=== PATIENT | female | born 1975 | race Caucasian/White ===

== ENCOUNTER 2020-04-22 07:50 | Outpatient (REF) | payer OTHER, MEDICAID, SELFPAY ==
[2020-04-22 08:58] LABS: Alanine Aminotransferase 10 U/L (0-31); Albumin Level 4.1 g/dL (3.5-5.0); Alkaline Phosphatase 74 U/L (39-117); Anion Gap 10 (12-20); Aspartate Amino Transferase 13 U/L (5-31); Bilirubin Direct 0.3 mg/dL (0.0-0.5); Bilirubin Total 0.6 mg/dL (0.0-1.0); Blood Urea Nitrogen 13 mg/dL (9-16); Calcium 8.9 mg/dL (8.4-10.2); Carbon Dioxide 28 mmol/L (22-29); Chloride 104 mmol/L (96-108); Estimated Glomerular Filt Rate > 60; Gamma Glutamyl Transpeptidase 10 U/L (7-33); Glucose Random 87 mg/dL (60-115); Potassium 4.5 mmol/l (3.3-5.1); Sodium 137 mmol/L (135-145)
[2020-04-23 11:20] LABS: Hepatitis A Antibody IgG REACTIVE (Nonreactive); ~Hepatitis A Antibody IgG 8.59 S/CO (0.00-0.99)
== END 2020-04-22 07:51 | disposition home or self-care (01) ==
LOC: HO.LAB 07:50
PROVIDERS: PCP Internal Medicine; Visit Provider Internal Medicine Gastroenterology
DX: B18.1 Chronic viral hepatitis B without delta-agent (principal)
CPT/HCPCS: 36415; 80053; 80076; 82977; 86708

== ENCOUNTER 2020-05-07 09:23 | Outpatient (REF) | payer OTHER, MEDICAID, SELFPAY ==
[2020-05-07 11:19] LABS: MANUAL DIFF FLAG NO
[2020-05-07 11:32] LABS: Basophils Percent Auto 0.6 % (0-2); Eosinophils Absolute Auto 0.1 X10*3/uL (0.0-0.4); Hematocrit 40.2 % (37-47); Hemoglobin 12.6 g/dl (12.0-16.0); Imm Gran Abs Auto 0.02 X10*3/uL (0.00-0.03); Imm Gran Pct Auto 0.3 % (0.0-0.4); Lymphocytes Absolute Auto 2.2 X10*3/uL (1.2-4.9); Lymphocytes Percent Auto 33.5 % (20-40); Mean Corpuscular HGB Conc 31.3 g/dl (31.0-35.0); Mean Corpuscular Hemoglobin 28.8 pg (27.0-33.0); Mean Platelet Volume 11.6 fL (9.4-12.3); Monocytes Absolute Auto 0.5 X10*3/uL (0.1-1.2); Monocytes Percent Auto 7.8 % (2-11); Neutrophils Absolute Auto 3.8 X10*3/uL (2.0-8.3); Neutrophils Percent Auto 56.8 % (45-73); Platelet Count 168 X10*3/uL (160-400); Red Blood Count 4.37 X10*6/uL (4.20-5.50); Red Cell Distribution Width 11.6 % (11.0-16.0); White Blood Count 6.7 X10*3/uL (4.8-10.8)
[2020-05-07 11:33] LABS: Glucose Urine UA NEG (NEG); Leukocyte Esterase Urine NEG (NEG); Nitrite Urine NEG (NEG); PH 7.5 (5.0-8.0); Urine Blood NEG (NEG); Urine Ketones NEG (NEG); Urine Protein NEG (NEG-TRACE)
[2020-05-07 11:34] LABS: Appearance Urine CLEAR; Color Urine YELLOW
[2020-05-07 12:18] LABS: TSH reflex Free T4 1.61 mIU/mL (0.32-4.0); Vitamin D 25-OH Total 23.2 ng/mL (>30)
== END 2020-05-07 09:24 | disposition home or self-care (01) ==
LOC: HO.HMGCLDS 09:23
PROVIDERS: PCP Internal Medicine; Visit Provider Internal Medicine
DX: Z00.01 Encounter for general adult medical examination with abnormal findings (principal); Z90.5 Acquired absence of kidney; D69.6 Thrombocytopenia, unspecified; R53.83 Other fatigue
CPT/HCPCS: 36415; 81003; 82306; 84443; 85025

== ENCOUNTER → 2020-09-01 08:28 | Outpatient (BNVA) | payer OTHER, MEDICAID, SELFPAY | PROVIDERS: PCP Internal Medicine; Visit Provider Internal Medicine Gastroenterology ==

== ENCOUNTER 2021-09-05 08:52 | Outpatient (REF) | payer OTHER, SELFPAY ==
[2021-09-05 11:45] LABS: Appearance Urine CLEAR; Color Urine YELLOW; Glucose Urine UA NEG (NEG); Leukocyte Esterase Urine NEG (NEG); MANUAL DIFF FLAG NO; Nitrite Urine NEG (NEG); Specific Gravity - Urine >= 1.030 (1.005-1.025); UACC Culture Trigger NO; Urine Blood TRACE (NEG); Urine Ketones NEG (NEG); Urine Protein NEG (NEG-TRACE)
[2021-09-05 11:52] LABS: Basophils Percent Auto 0.7 % (0-2); Eosinophils Absolute Auto 0.1 X10*3/uL (0.0-0.4); Eosinophils Percent Auto 1.8 % (0-4); Hematocrit 39.2 % (37.0-47.0); Hemoglobin 12.7 g/dl (12.0-16.0); Imm Gran Abs Auto 0.02 X10*3/uL (0.00-0.03); Imm Gran Pct Auto 0.3 % (0.0-0.4); Lymphocytes Absolute Auto 2.2 X10*3/uL (1.2-4.9); Lymphocytes Percent Auto 36.2 % (20-40); Mean Corpuscular HGB Conc 32.4 g/dl (31.0-35.0); Mean Corpuscular Hemoglobin 29.5 pg (27.0-33.0); Mean Platelet Volume 12.1 fL (9.4-12.3); Monocytes Absolute Auto 0.5 X10*3/uL (0.1-1.2); Monocytes Percent Auto 8.3 % (2-11); Neutrophils Absolute Auto 3.2 x10*3/uL (2.0-8.3); Neutrophils Percent Auto 52.7 % (45-73); Platelet Count 149 X10*3/uL (160-400); Red Blood Count 4.31 X10*6/uL (4.20-5.50); Red Cell Distribution Width 11.7 % (11.0-16.0)
[2021-09-05 11:58] LABS: Bacteria Urine TRACE /LPF; Squamous Epithelial Cell Urine 1+ /LPF; WBC Urine 0-2 /HPF (0-4)
[2021-09-05 12:01] LABS: Alanine Aminotransferase 14 U/L (0-31); Anion Gap 11 (12-20); Aspartate Amino Transferase 18 U/L (5-31); Blood Urea Nitrogen 9 mg/dL (9-16); Calcium 9.4 mg/dL (8.4-10.2); Carbon Dioxide 25 mmol/L (22-29); Chloride 105 mmol/L (96-108); Cholesterol 145 mg/dL; Estimated Glomerular Filt Rate > 60; Glucose Fasting 76 mg/dL (60-99); HDL Cholesterol 50 mg/dL; LDL Cholesterol Calculated 81 mg/dl; Potassium 3.6 mmol/L (3.3-5.1); Sodium 137 mmol/L (135-145); Triglycerides 71 mg/dL
[2021-09-05 12:23] LABS: Vitamin D 25-OH Total 25.3 ng/mL (>30)
== END 2021-09-05 08:53 | disposition home or self-care (01) ==
LOC: HO.HMGCLDS 08:52
PROVIDERS: Visit Provider Internal Medicine
DX: Z00.01 Encounter for general adult medical examination with abnormal findings (principal); Z90.5 Acquired absence of kidney
CPT/HCPCS: 36415; 80048; 80061; 81001; 82306; 84450; 84460; 85025

== ENCOUNTER 2022-08-24 14:44 | Outpatient (AMB) | payer OTHER, MEDICAID, SELFPAY ==
--- NOTE | 2022-08-24 15:40 | MHC.PC.OV ---
Vital Signs 08/24/22 15:41 Height 5 ft Weight 139 lb BMI 27.1 BP 112/76 Blood Pressure Location Lt brachial Position Sitting Pulse 88 Pulse Source Pulse Oximeter Pulse Oximetry (%) 99 Oxygen Delivery Method Room Air Intake Visit Reasons: Requesting xray of heart Intake Note: Pt is here today for a sick visit. Pt had chest discomfort that started in July and it comes and goes. Pt states that she had Covid in June.Pt also c/o lower back pain and she wants to have her urine checked as she only has one kidney. Allergies No Known Drug Allergies Allergy (Verified 03/12/25 11:22) Unknown Medication List - Last Reconciled 08/24/22 by Tessie Cerrato MD cholecalciferol (vitamin D3) 25 mcg PO DAILY cyanocobalamin (vitamin B-12) 1,000 mcg PO DAILY Tobacco use date assessed: 08/24/22 [facility] Medical History (Updated 07/17/25 @ 08:31 by Olivia Lweis CNP) Constipation Hiatal hernia Acid reflux Colon cancer screening Generalized anxiety disorder Sliding hiatal hernia Lumbago History of COVID-19 Hx of unilateral nephrectomy Hepatitis A Juvenile seizure disorder Surgical History History of nephrectomy, left Family History Father No problems noted. 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 Eber Werner, Dee Jaimes, Elder Payne and colleagues, with an educational emily from [employer]. Physical exam (Primary Care) Vital Signs: Last Vital Signs Pulse 88 08/24/22 15:41 BP 112/76 08/24/22 15:41 Pulse Ox 99 08/24/22 15:41 Oxygen Delivery Method Room Air 08/24/22 15:41 BMI result Body Mass Index 27.1 Tobacco/Smoking Status: Tobacco use Status Tobacco use date assessed 08/24/22 08/24/22 15:45 Patient Tobacco Use Status Never used Tobacco 08/24/22 15:45 e-Cigarette/Vaping Use Never Used 08/24/22 15:45 Thrive Assessment: Date of Thrive Assessment Date Thrive assessed 09/05/21 08/24/22 15:45 Results AMB Urinalysis, Automated UA Leukoctes 0 Vladimir/uL Last Edit by Sinai Torrez CMA on 08/24/22 15:58 UA Nitrite Negative Last Edit by Sinai Torrez CMA on 08/24/22 15:58 UA Urobilinogen 0.2 mg/dL Last Edit by Sinai Torrez CMA on 08/24/22 15:58 UA Protein 0 mg/dL Last Edit by Sinai Torrez CMA on 08/24/22 15:58 UA pH 6.0 Last Edit by Sinai Torrez CMA on 08/24/22 15:58 UA Blood 200 Amrvel/uL Last Edit by Sinai Torrez CMA on 08/24/22 15:58 pt on menses Sinai Torrez 08/24/22 15:58 UA Specific [place] 1.020 Last Edit by Sinai Torrez CMA on 08/24/22 15:58 UA Ketone Negative Last Edit by Sinai Torrez CMA on 08/24/22 15:58 UA Bilirubin 0 mg/dL Last Edit by Sinai Torrez CMA on 08/24/22 15:58 UA Glucose 0 mg/dL Last Edit by Sinai Torrez CMA on 08/24/22 15:58 Results Reviewed Results Reviewed: Laboratory Last Values Urine pH (Auto) 6.0 08/24/22 15:53 Specific [place] (Auto) 1.020 08/24/22 15:53 Urine Protein (Auto) 0 mg/dL 08/24/22 15:53 Glucose (UA)(Auto) 0 mg/dL 08/24/22 15:53 Urine Ketones (Auto) Negative 08/24/22 15:53 Urine Blood (Auto) 200 Marvel/uL 08/24/22 15:53 Urine Nitrite (Auto) Negative 08/24/22 15:53 Urine Bilirubin (Auto) 0 mg/dL 08/24/22 15:53 Urine Urobilinogen (Auto) 0.2 mg/dL 08/24/22 15:53 Leukocyte Esterase (Auto) 0 Vladimir/uL 08/24/22 15:53 Coding Level of Care Code Admin Sign Off/No Billing Diagnoses Hx of unilateral nephrectomy Z90.5 Intermittent palpitations R00.2
[2022-08-24 15:41] VITALS: BP 112/76; PULSE 88; O2SAT 99; BMI 27.1
== END 2022-08-24 16:45 | disposition home or self-care (01) ==
LOC: HO.HMGC 14:44
PROVIDERS: PCP Internal Medicine; Visit Provider Internal Medicine
DX: Z90.5 Acquired absence of kidney (principal); R00.2 Palpitations
CPT/HCPCS: 99499

== ENCOUNTER 2022-08-26 09:40 | Outpatient (REF) | payer OTHER, SELFPAY ==
[2022-08-26 09:50] LABS: MANUAL DIFF FLAG NO
[2022-08-26 10:25] LABS: Basophils Absolute Auto 0.1 X10*3/uL (0.0-0.2); Basophils Percent Auto 0.9 % (0-2); Eosinophils Absolute Auto 0.2 X10*3/uL (0.0-0.4); Eosinophils Percent Auto 2.6 % (0-4); Hematocrit 41.3 % (37.0-47.0); Hemoglobin 13.5 g/dl (12.0-16.0); Imm Gran Abs Auto 0.01 X10*3/uL (0.00-0.03); Imm Gran Pct Auto 0.2 % (0.0-0.4); Lymphocytes Absolute Auto 2.4 X10*3/uL (1.2-4.9); Lymphocytes Percent Auto 37.3 % (20-40); Mean Corpuscular HGB Conc 32.7 g/dl (31.0-35.0); Mean Corpuscular Hemoglobin 29.3 pg (27.0-33.0); Mean Corpuscular Volume 89.6 fL (80.0-98.0); Mean Platelet Volume 10.9 fL (9.4-12.3); Monocytes Absolute Auto 0.5 X10*3/uL (0.1-1.2); Monocytes Percent Auto 7.5 % (2-11); Neutrophils Absolute Auto 3.3 x10*3/uL (2.0-8.3); Neutrophils Percent Auto 51.5 % (45-73); Platelet Count 184 X10*3/uL (160-400); Red Blood Count 4.61 X10*6/uL (4.20-5.50); Red Cell Distribution Width 11.9 % (11.0-16.0); White Blood Count 6.4 X10*3/uL (4.8-10.8)
[2022-08-26 12:42] LABS: Anion Gap 15 (12-20); Blood Urea Nitrogen 17 mg/dL (9-16); Calcium 9.5 mg/dL (8.4-10.2); Carbon Dioxide 21 mmol/L (22-29); Chloride 106 mmol/L (96-108); Cholesterol 175 mg/dL; Estimated Glomerular Filt Rate > 60; Glucose Fasting 79 mg/dL (60-99); HDL Cholesterol 51 mg/dL; LDL Cholesterol Calculated 111 mg/dl; Potassium 4.1 mmol/L (3.3-5.1); Sodium 138 mmol/L (135-145); Triglycerides 67 mg/dL
[2022-08-26 12:47] LABS: TSH reflex Free T4 1.32 uIU/mL (0.32-4.0); Vitamin D 25-OH Total 33.5 ng/mL (>30)
== END 2022-08-26 09:41 | disposition home or self-care (01) ==
LOC: HO.LAB 09:40
PROVIDERS: PCP Internal Medicine; Visit Provider Internal Medicine
DX: E55.9 Vitamin D deficiency, unspecified (principal); R00.2 Palpitations; Z86.16 Personal history of COVID-19; Z90.5 Acquired absence of kidney
CPT/HCPCS: 36415; 80048; 80061; 82306; 84443; 85025

== ENCOUNTER 2023-01-24 09:55 | Outpatient (REF) | payer OTHER, MEDICAID, SELFPAY | END 2023-01-24 09:56 | disposition home or self-care (01) | LOC: HO.HMGCLDS 09:55 | PROVIDERS: PCP Internal Medicine; Visit Provider Internal Medicine | DX: Z00.00 Encounter for general adult medical examination without abnormal findings (principal); Z90.5 Acquired absence of kidney | CPT/HCPCS: 36415; 80048 ==

== ENCOUNTER 2024-01-30 10:28 | Outpatient (AMB) | payer OTHER, MEDICAID, SELFPAY ==
--- NOTE | 2024-01-30 11:12 | A.OFFPC_ITS ---
Vital Signs 01/30/24 11:14 Height 4 ft 11 in Weight 139 lb BMI 28.1 BP 122/80 Blood Pressure Location Lt brachial Position Sitting Pulse 75 Pulse Source Pulse Oximeter Pulse Oximetry (%) 99 Oxygen Delivery Method Room Air Intake Visit Reasons: PE Intake Note: Pt is here today for her PE: mammogram 01/25/24, cologuard 07/05/22 Is last menstrual period known: Yes Last menstrual period: 01/26/24 Allergies No Known Drug Allergies Allergy (Verified 01/30/24 11:47) Unknown Medication List - Last Reconciled 01/30/24 by Tessie Cerrato MD buspirone 5 mg PO TID Tobacco use date assessed: 01/30/24 Dental Screening Dental Screen Date: 01/30/24 Did you have a dental visit in the last 12 months?: Yes Did you have a dental problem in the last 6 months where you did not have access to dental care?: No Was dental information given to patient?: Patient has dentist HPI PE HPI Details 48-year-old lady here today for physical exam. She is up-to-date with her screening mammogram done at [facility] and also sees her OBGYN [facility] for her routine Pap and pelvic exam which is currently up-to-date. She is up-to-date with her colon cancer screening, had a Cologuard test done in 2021 which came back with negative findings, due again in 2024.. Has been having a lot of health problems in the family lately takes care of her who is currently disabled. States that she is feeling overwhelmed at present and has been having frequent anxiety attacks and depressed mood. She has been having difficulty sleeping at times, previously was being seen for therapy , and now has schedule another appointment to be seen [facility] Medical History Anxiety and depression Lumbago History of COVID-19 Hx of unilateral nephrectomy Hepatitis A Juvenile seizure disorder Surgical History History of nephrectomy, left Family History Father No problems noted. 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 Questionnaire PHQ-9 Over the last 2 weeks, how often have you been bothered by any of the following problems? 1. Little interest or pleasure in doing things: several days 2. Feeling down, depressed, or hopeless: several days 3. Trouble falling or staying asleep, or sleeping too much: several days 4. Feeling tired or having little energy: several days 5. Poor appetite or overeating: not at all 6. Feeling bad about yourself - or that you are a failure or have let yourself or your family down: several days 7. Trouble concentrating on things, such as reading the newspaper or watching television: not at all 8. Moving or speaking so slowly that other people could have noticed. Or the opposite - being so fidgety or restless that you have been moving around a lot more than usual: not at all 9. Thoughts that you would be better off or of hurting yourself in some way: not at all Total score: 5 Depression Screening Interpretation: Positive Depression Screening Follow-up: Existing condition, New Medication prescribed, Community Mental Health Worker F/U and Follow-up Visit Requested Depression Screening Done: Yes 42681 - PHQ-9 Billing: Yes Source: Developed by Drs. Eber Werner, Dee Jaimes, Elder Payne and colleagues, with an educational emily from [employer] Thrive Questionnaire Date Thrive assessed: 01/30/24 I am a: Patient What is your living situation today?: I have a steady place to live Within the past 12 months, did the food you bought not last and you didn't have the money to get more?: Never true Within the past 12 months, did you worry whether your food would run out before you got money to buy more?: Never true Do you have trouble paying for medicines?: No Do you have trouble getting transportation to medical appointments?: No Do you have trouble paying your heating and electricity bill?: No Do you have trouble taking care of your child, family member or friend?: No Do you have trouble with day-to-day activities such as bathing, preparing meals, shopping, managing finances, etc.?: No Are you currently unemployed and looking for a job?: No Are you interested in more education?: No Currently or been in a relationship where the following occur: No concerns reported THRIVE Score: 0 AUDIT C Alcohol Use Questionnaire (AUDIT-C) 1. How often do you have a drink containing alcohol?: Never 3. How often do you have six or more drinks on one occasion?: Never Total Score: 0 AFRICA-7 AMB Questionnaire AFRICA-7 Date AFRICA - 7 assessed: 01/30/24 Feeling nervous, anxious, or on edge: 2 = More than half the days Not being able to stop or control worryin = More than half the days Worrying too much about different things: 2 = More than half the days Trouble relaxin = More than half the days Being so restless that it is hard to sit still: 0 = Not at all Becoming easily annoyed or irritable: 1 = Several days Feeling afraid as if something awful might happen: 0 = Not at all Total AFRICA-7 score (0-4 normal; 5-9 mild; 10-14 moderate; 15-21 severe): 9 Source: Developed by Drs. Eber Werner, Dee Jaimes, Elder Payne and colleagues, with an educational emily from [employer] AFRICA-7 Assessment Billing AFRICA-7 Assessment Tool: AFRICA-7 Assessment 08064 Review of Systems Const Denies body aches, Reports difficulty sleeping, Reports fatigue, Denies fever(s), Denies lethargy and Denies malaise Eyes Reports no additional complaints and Reports requires corrective lenses ENT Reports no additional complaints Card Denies chest pain, Denies irregular heart rhythm, Denies leg edema, Denies lightheadedness and Denies dyspnea Resp Denies cough and Denies dyspnea GI Denies abdominal pain, Denies melena, Denies hematochezia, Denies change in bowel habits, Denies heartburn and Denies nausea Denies abnormal menses, Denies hematuria, Denies difficulty voiding, Denies genital pruritis, Denies menorrhagia, Denies nipple discharge, Denies dysmenorrhea, Denies dysuria, Denies urinary incontinence and Denies vaginal discharge Musc Reports as per HPI, Denies arthralgias, Denies joint swelling and Denies muscle weakness Skin/Breast Denies breast skin changes, Denies breast pain, Denies breast mass, Denies nipple discharge and Denies unusual bruising Neuro Reports no additional complaints Psych Reports as per HPI Endo Reports no additional complaints and Reports fatigue Tima/Lymph Reports no additional complaints and Denies easy bleeding Aller/Immun Reports no additional complaints Physical exam (Primary Care) Vital Signs: Last Vital Signs Pulse 75 01/30/24 11:14 BP 122/80 01/30/24 11:14 Pulse Ox 99 01/30/24 11:14 Oxygen Delivery Method Room Air 01/30/24 11:14 BMI result Body Mass Index 28.1 Tobacco/Smoking Status: Tobacco use Status Tobacco use date assessed 01/30/24 01/30/24 11:17 Patient Tobacco Use Status Never used Tobacco 01/30/24 11:12 e-Cigarette/Vaping Use Never Used 01/30/24 11:12 PHQ-9: PHQ-9 Score PHQ-9: Total score 5 01/30/24 12:02 Depression Screening Interpretation: Positive Depression Screening Follow-up: Existing condition, New Medication prescribed, Community Mental Health Worker F/U and Follow-up Visit Requested Thrive Assessment: Date of Thrive Assessment Date Thrive assessed 01/30/24 01/30/24 12:02 Currently or been in a relationship where the following occur: No concerns reported Const General: no acute distress Nutritional Appearance: average body habitus Orientation/consciousness: patient oriented x3 HENMT Head: Yes normocephalic Ears: hearing grossly normal bilaterally, external ears normal, TM's normal bilaterally and EAC's normal General nose exam: Normal external nose present Face and sinus: Yes face symmetric Mouth: Normal oral and palatal mucosa present, tongue normal, oropharynx normal and moist mucous membranes Eyes General: appearance normal, both eyes and all related structures Conjunctivae: conjunctivae normal Pupils: Equal, round and reactive pupils present EOM: EOMs intact bilaterally Neck Neck: Yes full ROM, Yes no lymphadenopathy and Yes supple Chest Breast/axilla palpation: normal palpation of the breasts Resp Effort & Inspection: normal respiratory effort and able to speak in complete sentences Auscultation: clear to auscultation bilaterally Cardio Rate: regular rate Rhythm: regular rhythm Heart sounds: S1 normal heart sound present and S2 normal heart sound present GI Inspection: Yes normal to inspection Palpation (GI): Soft to palpation, nontender, no guarding and no masses Auscultation: normal bowel sounds General: Yes no CVA tenderness and Yes deferred (Mikaela HARRIS has appointment March 2023 per patient) Back/Spine/Pelvis Back: no CVA tenderness Cervical Spine: cervical ROM normal Thoracic/Lumbar Spine: thoraco-lumbar ROM normal, straight leg raise negative bilaterally and lumbar spinal tenderness Skin General skin exam: no rashes or lesions noted Neuro General: patient oriented x3, gait normal, tone normal, moves all extremities, Normal light touch and pain sensation, no focal motor deficits and CN's II-XI intact bilaterally Cranial nerves: Yes Equal, round and reactive pupils present Gait exam (Neuro): Normal gait present Motor exam (neuro): 5/5 motor strength present throughout Extrem General: Yes full ROM, Yes no joint enlargement, Yes no clubbing, cyanosis or edema, Yes no pedal edema, Yes no calf tenderness and Yes normal gait Psych Appearance: grossly normal and well kempt Mental Status: mental status grossly normal Speech and movement: Normal speech and movement present Affect: normal affect Attitude: cooperative Thought process: Normal thought process present Thought content: Normal thought content present Assessment and Plan Assessment & Plan (1) Hx of unilateral nephrectomy: Comment: Donated her left kidney to spouse Code(s): Z90.5 - Acquired absence of kidney Plan: Advised to stay well-hydrated, avoid NSAIDs or and any nephrotoxic agents. Pain good control blood pressure and glucose levels. (2) Annual visit for general adult medical examination with abnormal findings: Code(s): Z00.01 - Encounter for general adult medical examination with abnormal findings Plan: Will check appropriate labs. Continue ready dental visit every 6 months and regular eye exams, at least every 2 years. Take adequate calcium in diet and vitamin-D 3 at 2000 IU per cap once a day, in addition to weight-bearing exercises to help maintain good muscle tone and weight control. Instructed to do self-breast exam, and continue to get yearly mammogram. Gets it done at [facility], sees her OBGYN at [facility] for her routine Pap and pelvic exam,. She is up-to-date with all her vaccinations, and colon cancer screening, had her Cologuard test done in 2021, due for recheck in 2024. (3) Anxiety and depression: Code(s): F41.9 - Anxiety disorder, unspecified; F32.A - Depression, unspecified Plan: Will start on buspirone 5 mg per tablet to take 1 tablet twice a day and take an extra dose as needed for acute anxiety attacks. Patient to start seeing her therapist again. See her back for follow-up in 3 weeks Orders: Orders Complete Blood Count Auto Diff Today R53.83 - Other fatigue, Z00.01 - Encounter for general adult medical examination with abnormal findings, Z13.1 - Encounter for screening for diabetes mellitus, Z13.220 - Encounter for screening for lipoid disorders, Z86.39 - Personal history of other endocrine, nutritional and metabolic disease, Z90.5 - Acquired absence of kidney Aspartate Amino Transferase Today R53.83 - Other fatigue, Z00.01 - Encounter for general adult medical examination with abnormal findings, Z13.1 - Encounter for screening for diabetes mellitus, Z13.220 - Encounter for screening for lipoid disorders, Z86.39 - Personal history of other endocrine, nutritional and metabolic disease, Z90.5 - Acquired absence of kidney Alanine Aminotransferase Today R53.83 - Other fatigue, Z00.01 - Encounter for general adult medical examination with abnormal findings, Z13.1 - Encounter for screening for diabetes mellitus, Z13.220 - Encounter for screening for lipoid disorders, Z86.39 - Personal history of other endocrine, nutritional and metabolic disease, Z90.5 - Acquired absence of kidney Lipid Panel Today R53.83 - Other fatigue, Z00.01 - Encounter for general adult medical examination with abnormal findings, Z13.1 - Encounter for screening for diabetes mellitus, Z13.220 - Encounter for screening for lipoid disorders, Z86.39 - Personal history of other endocrine, nutritional and metabolic disease, Z90.5 - Acquired absence of kidney Vitamin D 25-OH Total Today R53.83 - Other fatigue, Z00.01 - Encounter for general adult medical examination with abnormal findings, Z13.1 - Encounter for screening for diabetes mellitus, Z13.220 - Encounter for screening for lipoid disorders, Z86.39 - Personal history of other endocrine, nutritional and metabolic disease, Z90.5 - Acquired absence of kidney Vitamin B12 and Folate Today R53.83 - Other fatigue, Z00.01 - Encounter for general adult medical examination with abnormal findings, Z13.1 - Encounter for screening for diabetes mellitus, Z13.220 - Encounter for screening for lipoid disorders, Z86.39 - Personal history of other endocrine, nutritional and metabolic disease, Z90.5 - Acquired absence of kidney Basic Metabolic Panel Fasting Today R53.83 - Other fatigue, Z00.01 - Encounter for general adult medical examination with abnormal findings, Z13.1 - Encounter for screening for diabetes mellitus, Z13.220 - Encounter for screening for lipoid disorders, Z86.39 - Personal history of other endocrine, nutritional and metabolic disease, Z90.5 - Acquired absence of kidney Medications: New buspirone 5 mg PO TID 90 tabs 0RF F32.A - Depression, unspecified, F41.9 - Anxiety disorder, unspecified Coding Level of Care Code Est Pt Prev Care 40-64y(55425) Diagnoses Hx of unilateral nephrectomy Z90.5 Annual visit for general adult medical examination with abnormal findings Z00.01 Anxiety and depression F41.9; F32.A Additional Codes AFRICA-7 Assessment Billing - AFRICA-7 Assessment Tool: AFRICA-7 Assessment 87490 ([id number])
[2024-01-30 11:14] VITALS: BP 122/80; PULSE 75; O2SAT 99; BMI 28.1
== END 2024-01-30 11:53 | disposition home or self-care (01) ==
PROVIDERS: PCP Internal Medicine; Visit Provider Internal Medicine
DX: Z00.00 Encounter for general adult medical examination without abnormal findings (principal); Z90.5 Acquired absence of kidney; F41.9 Anxiety disorder, unspecified; F32.A Depression, unspecified
CPT/HCPCS: 96127; 99396

== ENCOUNTER 2024-01-30 11:52 | Outpatient (REF) | payer OTHER, SELFPAY ==
[2024-01-30 13:06] LABS: MANUAL DIFF FLAG NO
[2024-01-30 13:28] LABS: Basophils Percent Auto 0.5 % (0-2); Eosinophils Percent Auto 0.4 % (0-4); Hematocrit 42.7 % (37.0-47.0); Hemoglobin 13.8 g/dl (12.0-16.0); Imm Gran Abs Auto 0.02 X10*3/uL (0.00-0.03); Imm Gran Pct Auto 0.2 % (0.0-0.4); Lymphocytes Percent Auto 24.8 % (20-40); Mean Corpuscular HGB Conc 32.3 g/dl (31.0-35.0); Mean Corpuscular Hemoglobin 29.2 pg (27.0-33.0); Mean Corpuscular Volume 90.5 fL (80.0-98.0); Mean Platelet Volume 10.9 fL (9.4-12.3); Monocytes Absolute Auto 0.4 X10*3/uL (0.1-1.2); Monocytes Percent Auto 4.7 % (2-11); Neutrophils Absolute Auto 5.6 x10*3/uL (2.0-8.3); Neutrophils Percent Auto 69.4 % (45-73); Platelet Count 179 X10*3/uL (160-400); Red Blood Count 4.72 X10*6/uL (4.20-5.50); Red Cell Distribution Width 11.9 % (11.0-16.0); White Blood Count 8.1 X10*3/uL (4.8-10.8)
[2024-01-30 14:31] LABS: Alanine Aminotransferase 13 U/L (0-31); Anion Gap 13 (12-20); Aspartate Amino Transferase 17 U/L (5-31); Blood Urea Nitrogen 9 mg/dL (9-16); Calcium 9.6 mg/dL (8.4-10.2); Carbon Dioxide 25 mmol/L (22-29); Chloride 106 mmol/L (96-108); Cholesterol 170 mg/dL (<200); Estimated Glomerular Filt Rate > 60; Glucose Fasting 83 mg/dL (60-99); HDL Cholesterol 58 mg/dL (>40); LDL Cholesterol Calculated 102 mg/dL (<100); Potassium 4.2 mmol/L (3.3-5.1); Sodium 140 mmol/L (135-145); Triglycerides 52 mg/dL (<150)
[2024-01-30 14:49] LABS: Folate 7.4 ng/mL (> or = 4.0); Vitamin B12 330 pg/mL (200-900)
== END 2024-01-30 11:53 | disposition home or self-care (01) ==
LOC: HO.HMGCLDS 11:52
PROVIDERS: PCP Internal Medicine; Visit Provider Internal Medicine
DX: Z00.01 Encounter for general adult medical examination with abnormal findings (principal); Z90.5 Acquired absence of kidney; Z13.220 Encounter for screening for lipoid disorders; Z13.1 Encounter for screening for diabetes mellitus; Z86.39 Personal history of other endocrine, nutritional and metabolic disease; R53.83 Other fatigue
CPT/HCPCS: 36415; 80048; 80061; 82306; 82607; 82746; 84450; 84460; 85025

== ENCOUNTER 2024-02-22 09:25 | Outpatient (AMB) | payer OTHER, SELFPAY ==
--- NOTE | 2024-02-22 09:25 | A.OFFPC_ITS ---
Intake Visit Reasons: f/u anxiety Intake Note: Pt is following up on Anxiety. Allergies No Known Drug Allergies Allergy (Verified 02/22/24 09:30) Unknown Medication List - Last Reconciled 02/22/24 by Tessie Cerrato MD buspirone 5 mg PO TID Tobacco use date assessed: 02/22/24 Dental Screening Dental Screen Date: 02/22/24 Did you have a dental visit in the last 12 months?: Yes Did you have a dental problem in the last 6 months where you did not have access to dental care?: No Was dental information given to patient?: Patient has dentist HPI f/u anxiety HPI Details Tele health visit made with 48-year-old lady here for follow-up on her anxiety and depression. She was started on buspirone 5 mg to take 1 tablet 3 times a day. Patient however has just been taking it 1 tablet twice a day which has been helping but it was making her very sleepy in the morning when she takes the 1st dose. She has dropped the 1st dose yesterday and has just been taking it at night, and states that it has been helping control her anxiety and depression. Would like to continue on just once a day dosing at night. [facility] Medical History Anxiety and depression Lumbago History of COVID-19 Hx of unilateral nephrectomy Hepatitis A Juvenile seizure disorder Surgical History History of nephrectomy, left Family History Father No problems noted. 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 1. Little interest or pleasure in doing things: not at all 2. Feeling down, depressed, or hopeless: not at all 3. Trouble falling or staying asleep, or sleeping too much: not at all 4. Feeling tired or having little energy: not at all 5. Poor appetite or overeating: not at all 6. Feeling bad about yourself - or that you are a failure or have let yourself or your family down: not at all 8. Moving or speaking so slowly that other people could have noticed. Or the opposite - being so fidgety or restless that you have been moving around a lot more than usual: not at all 9. Thoughts that you would be better off or of hurting yourself in some way: not at all Depression Screening Interpretation: Negative Depression Screening Done: Yes 20284 - PHQ-9 Billing: Yes Source: Developed by Drs. Eber Werner, Dee Jaimes, Elder Payne and colleagues, with an educational emily from [employer]. Thrive Questionnaire Date Thrive assessed: 01/30/24 AUDIT C Alcohol Use Questionnaire (AUDIT-C) 1. How often do you have a drink containing alcohol?: Never 3. How often do you have six or more drinks on one occasion?: Never Total Score: 0 Score Reviewed/Action Taken: Yes AFRICA-7 AMB Questionnaire AFRICA-7 Date AFRICA - 7 assessed: 01/30/24 Source: Developed by Drs. Eber Werner, Dee Jaimes, Elder Payne and colleagues, with an educational emily from [employer]. Review of Systems Const Denies body aches, Denies difficulty sleeping, Denies fatigue, Denies fever(s), Denies lethargy, Denies malaise and Denies poor appetite Eyes Reports no additional complaints ENT Reports no additional complaints Card Denies chest pain, Denies irregular heart rhythm, Denies leg edema, Denies lightheadedness and Denies dyspnea Resp Denies cough and Denies dyspnea GI Denies abdominal pain, Denies melena, Denies hematochezia, Denies change in bowel habits, Denies heartburn and Denies nausea Musc Denies arthralgias and Denies muscle weakness Neuro Reports no additional complaints Psych Reports no additional complaints Endo Denies fatigue Aller/Immun Reports no additional complaints Physical exam (Primary Care) Tobacco/Smoking Status: Tobacco use Status Tobacco use date assessed 02/22/24 02/22/24 09:26 Patient Tobacco Use Status Never used Tobacco 02/22/24 09:26 e-Cigarette/Vaping Use Never Used 02/22/24 09:26 Depression Screening Interpretation: Negative Thrive Assessment: Date of Thrive Assessment Date Thrive assessed 01/30/24 02/22/24 09:26 Telehealth Telehealth Telehealth Platform: [employer] Location of provider rendering services: practice address Location of patient: address on file Patient Identification confirmed using: Name, : Yes Telehealth method: video Patient verbally consented to treatment: Yes Patient verbally consented to billing insurance company: Yes Patient informed of any privacy concerns related to visit: Yes Minutes spent on Phone/Video with Pt.: 15 Assessment and Plan Assessment & Plan (1) Anxiety and depression: Code(s): F41.9 - Anxiety disorder, unspecified; F32.A - Depression, unspecified Plan: Continue with taking buspirone 5 mg at bedtime. Currently feeling better on this dose. Discussed other ways to relieve stress including : exercise or a massage, Get enough rest, Avoid alcohol, caffeine, nicotine, and illegal drugs which can increase your anxiety level and cause sleep problems. Coding Level of Care Code Tele Est Pt Level 3 (82465) Diagnoses Anxiety and depression F41.9; F32.A
== END 2024-02-22 10:13 | disposition home or self-care (01) ==
LOC: HO.HMGC 09:25
PROVIDERS: PCP Internal Medicine; Visit Provider Internal Medicine
DX: F41.9 Anxiety disorder, unspecified (principal); F32.A Depression, unspecified
CPT/HCPCS: 99213

== ENCOUNTER 2024-07-13 06:30 | Emergency (ER) | payer OTHER, SELFPAY ==
--- NOTE | ~2024-07-13 | CT_ITS ---
CT/CT head/brain wo IV con IMPRESSION: No acute intracranial pathology. Electronically signed by: Jessee Rowley MD 07/13/2024 08:11 AM [facility] EXAMINATION: CT HEAD WITHOUT CONTRAST CLINICAL INFORMATION: Dizziness COMPARISON: None available. TECHNIQUE: Contiguous axial imaging was performed from the skull base to vertex without intravenous administration of contrast. This CT examination was performed using dose optimization techniques as appropriate, variously including the following: *Automated exposure control *Adjustment of mA and/or kV according to patient size (this includes techniques or standardized protocols for targeted exams where dose is matched to indication/reason for exam; i.e. extremities or head) *Use of iterative reconstruction technique DLP: 615 mGy-cm FINDINGS: There is no evidence of acute intracranial hemorrhage or territorial infarction. No abnormal mass effect or midline shift is seen. Cain to white matter differentiation is well preserved. No extra-axial fluid collections are identified. The ventricles are normal in size. There is no abnormal attenuation within the brain parenchyma. The osseous structures and soft tissues are normal. The mastoid air cells and visualized portions of the paranasal sinuses are well aerated.
[2024-07-13 06:35] VITALS: BP 118/61; PULSE 77; RESP 18; TEMP 36.2; O2SAT 98; BMI 28.3
[2024-07-13] MEDS: Ondansetron ODT 4 MG TAB.RAPDIS TRANSLINGU (06:39)
--- NOTE | 2024-07-13 06:42 | ECG_ITS ---
Test Reason : DIZZINESS Blood Pressure : / mmHG Vent. Rate : 070 BPM Atrial Rate : 070 BPM P-R Int : 126 ms QRS Dur : 080 ms QT Int : 380 ms P-R-T Axes : 025 039 034 degrees QTc Int : 410 ms Normal sinus rhythm Normal ECG No previous ECGs available Referred By: Generic ED Physician Electronically Signed By:ARMEN STAHL
--- NOTE | 2024-07-13 07:19 | ED.DIZZY ---
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 She reports that she has otherwise been feeling well recently nothing out of the ordinary, went to bed last night feeling normal. She awoke at approximately 05:50 today which is a typical timing for her but she was feeling dizzy as she was lying in bed. She describes it as a ?weird sensation? where she felt off and out of place. She sat up on the side of the bed and she noticed that the room was spinning some. This episodic dizziness with varying intensity continued on for about an hour. She had associated nausea as well as vomiting. She endorses that it typically was made worse when changing positions or when starting walking. She awoke her partner and asked him to bring her to the emergency department for evaluation she had never experienced anything like this. She denies any recent illness or prior episodes of such. Denies fevers, chills, falls, head trauma, pre-syncope, syncope, headache, vision changes, hearing changes, ringing of the ears, nausea, vomiting, palpitations, shortness of breath, exercise intolerance, or pedal edema. Related Data Previous Rx's ?Medication ?Instructions ?Recorded buspirone 5 mg tablet 5 mg PO TID #90 tabs 02/27/24 meclizine 25 mg tablet 25 mg PO BID PRN dizziness #14 tabs 07/13/24 Allergies Allergy/AdvReac Type Severity Reaction Status Date / Time No Known Drug Allergies Allergy Unknown Verified 07/13/24 06:36 Review of Systems Review of Systems: Yes all other systems are reviewed and are negative PMFSH Past Medical History Attestation statement: The following information was validated with the patient. Source: old records reviewed Medical History Anxiety and depression Lumbago History of COVID-19 Hx of unilateral nephrectomy Hepatitis A Juvenile seizure disorder Surgical History History of nephrectomy, left Family History Family History Father No problems noted. 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 No acute distress.?Normal affect. Head: Normocephalic, atraumatic. No head, sinus or TMJ tenderness.? Eyes: Sclera white, conjunctiva pink. PERRL, 3 mm bilaterally. Visual choi full to confrontation, EOMi.?No Nystagmus. Ears: Bilateral ear canals clear, TM visible with good cone of light.? Nose: Nasal mucosa pink and moist with midline septum, nares patent bilaterally.? Mouth/ Throat: Oral mucosa pink and moist without lesions. Pharynx normal Neck: Normal inspection.? Neck supple.?? CVS: Heart sounds normal. Normal heart rate and rhythm.? Pulses normal.?? Respiratory: No respiratory distress.? Lung sounds clear to auscultation bilaterally?? Abdomen: Soft and non-tender. Normoactive bowel sounds. No pulsatile mass.?? Skin: Skin warm and dry.? Normal skin color.? Normal skin turgor.?? Extremities: No lower extremity edema. Neuro: No focal neurological deficit observed, CN II-XII intact, normal sensory observed, normal coordination observed. Level of consciousness: Appropriate for age. Motor strength: right upper extremity 5 /5, left upper extremity 5 /5, right lower extremity 5 /5, left lower extremity 5 /5.?Speech: Normal, Gait: Normal, Qwrsrs-vh-llem test: Normal, Soye-vs-gtst test: Normal. Ambulates with normal steady gait. 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 Sudden onset episodic with severe intensity. Overall at this time she is well-appearing. Received Zofran with improvement in nausea no further episodes of vomiting since arrival. She has no focal neurological deficits on examination, no spontaneous or gaze evoked nystagmus, no ataxia, no diplopia, no dysarthria, no dysphagia, no dysphonia, no dysmetria. Will obtain CBC to evaluate for leukocytosis/ anemia, CMP to evaluate for abnormal electrolytes /abnormal renal function/ abnormal hepatic function, EKG and troponin to evaluate for ischemia/ACS. Given the sudden onset of dizziness, severe intensity, episodic nature, this time I suspect this is most consistent with BPPV as it is triggered with position change and certain head movements eliciting dizziness. Given no prior history, will obtain CT of the head to exclude acute intracranial pathology. CT head without acute intracranial pathology, no overwhelming laboratory abnormalities as per narrative below, EKG nonischemic. She has had no further episodes of dizziness or nausea while in the emergency department. She declined taking meclizine as she was asymptomatic. However, given the compelling history I suspect that this was most likely vertigo, upcoming holidays and likely inability to have prompt follow-up with her primary care doctor, have agreed to send a short prescription for meclizine to the pharmacy to trial at home should her symptoms return. However we did discussed strict return precautions worrisome signs and symptoms that would warrant re-evaluation in the emergency department Differential Diagnosis Differential Diagnoses: The differential diagnosis associated with the presentation includes (See narrative above) Admission/Observation Consideration of admission/observation: Escalation of care including admission/observation considered (See narrative above and course narrative for further detail) Lab Data MDM Lab Attestation statement: I reviewed the patient's lab results. CBC is without leukocytosis or anemia, has a mild thrombocytopenia. No significant electrolyte derangement. No DARREN. LFTs unremarkable. BNP within normal range. High sensitive troponin below detectable limits. 07/13/24 07:59 07/13/24 07:59 Labs: Lab Results 07/13/24 07/13/24 Range/Units 07:59 08:16 WBC 8.8 (4.8-10.8) X10*3/uL RBC 4.53 (4.20-5.50) X10*6/uL Hgb 13.1 (12.0-16.0) g/dl Hct 39.8 (37.0-47.0) % MCV 87.9 (80.0-98.0) fL MCH 28.9 (27.0-33.0) pg MCHC 32.9 (31.0-35.0) g/dl RDW 11.8 (11.0-16.0) % Plt Count 134 L D (160-400) X10*3/uL MPV 10.1 (9.4-12.3) fL Immature Gran % (Auto) 0.5 H (0.0-0.4) % Neut % (Auto) 73.7 H (45-73) % Lymph % (Auto) 19.1 L (20-40) % [place] % (Auto) 5.2 (2-11) % Eos % (Auto) 1.0 (0-4) % Baso % (Auto) 0.5 (0-2) % Lymph # (Auto) 1.7 (1.2-4.9) X10*3/uL [place] # (Auto) 0.5 (0.1-1.2) X10*3/uL Eos # (Auto) 0.1 (0.0-0.4) X10*3/uL Baso # (Auto) 0.0 (0.0-0.2) X10*3/uL Abs Immat Gran (auto) 0.04 H (0.00-0.03) X10*3/uL Absolute Neuts (auto) 6.5 (2.0-8.3) x10*3/uL Absolute Nucleated RBC 0.000 (0.0-0.012) X10*3/uL Nucleated RBC % (auto) 0.0 (0.0-0.2) /100WBC PT 12.2 (10.9-12.4) SEC INR 1.0 (0.9-1.1) Sodium 138 (135-145) mmol/L Potassium 3.8 (3.3-5.1) mmol/L Chloride 109 H (96-108) mmol/L Carbon Dioxide 24 (22-29) mmol/L Anion Gap 9 L (12-20) BUN 13 (9-16) mg/dL Creatinine 0.92 (0.5-1.4) mg/dL Estim Creat Clear Calc 61.2 Estimated GFR > 60 Random Glucose 95 (60-115) mg/dL Calcium 8.6 D (8.4-10.2) mg/dL Magnesium 1.8 (1.6-2.6) mg/dL Total Bilirubin 0.2 (0.0-1.0) mg/dL AST 22 (5-31) U/L ALT 16 (0-31) U/L Alkaline Phosphatase 58 (39-117) U/L Troponin I High Sens < 2.7 (<3.5-17.0) ng/L B-Natriuretic Peptide 13 (<100) pg/mL Total Protein 6.8 (6.5-8.0) g/dL Albumin 3.9 (3.5-5.0) g/dL Lipase 22 (8-78) U/L Urine Color Yellow Urine Appearance Hazy Urine pH 6.0 (5.0-9.0) Ur Specific [place] <= 1.005 (1.005-1.025) Urine Protein Negative (Neg-Trace) mg/dL Urine Glucose (UA) Negative (Negative) mg/dL Urine Ketones Negative (Negative) mg/dL Urine Blood Trace (Negative) Urine Nitrite Negative (Negative) Ur Leukocyte Esterase Negative (Negative) Urine RBC 0-2 (0-2) /HPF Urine WBC 0-5 (0-5) /HPF Ur Squamous Epith Cells 0-2 (0-2) /HPF Urine Bacteria None Seen (None Seen) Hyaline Casts 3-5 (0-2) /LPF Urine Test NEGATIVE (NEGATIVE) Influenza Type A (PCR) NEGATIVE (Negative) Influenza Type B (PCR) NEGATIVE (Negative) RSV RNA Qual (PCR) NEGATIVE (Negative) SARS-CoV-2 RNA (RT-PCR) NEGATIVE (Negative) Independent Interpretation I performed an independent interpretation of an: EKG and CT Scan (No ICH or intracranial mass) Interpretation: Rate: 70 Rhythm:? Normal sinus rhythm Normal P waves.? Normal DAYSI.?? Normal QRS complex.?? ST T wave :??No ST elevation, no ST depression qTC: 410 The study has been interpreted contemporaneously by me. Radiology Impression Discussion of test interpretation with radiology: I have reviewed the radiologist's reading. Radiologist Impression: CT/CT head/brain wo IV con IMPRESSION: No acute intracranial pathology. Independent Historian Clinical information obtained from an independent historian. History obtained from or confirmed by: Spouse External Record Review External record reviewed: Outpatient record Chronic Conditions Patient?s care impacted by: Other (See narrative above) Discharge Plan Discharge Clinical Impression: Dizziness Patient Disposition: Home, Self-Care Instructions: Dizziness (ED) Additional Instructions: As discussed, your symptoms sounded most consistent with a condition known as vertigo that results in dizziness. Your symptoms had resolved without trialing meclizine in the emergency department. Your workup was otherwise unremarkable today. I have sent a prescription for the meclizine to your pharmacy to use as needed for dizziness as prescribed. I do suggest that you contact your primary care doctor's office tomorrow to schedule a follow-up appointment should you continue to have episodes of dizziness like this. Especially with the upcoming holidays you may have a difficult time getting a prompt appointment. Please return to emergency department any new or worsening symptoms or concerns. Prescriptions: New meclizine 25 mg tablet 25 mg PO BID PRN (Reason: dizziness) Qty: 14 0RF No Action buspirone 5 mg tablet 5 mg PO TID Qty: 90 2RF Referrals: Tessie Cerrato MD [Primary Care Provider] - Print Language: Belarusian
[2024-07-13 08:00] VITALS: BP 108/52; PULSE 78; RESP 16; TEMP 36.7; O2SAT 99
[2024-07-13 08:04] LABS: MANUAL DIFF FLAG NO
[2024-07-13 08:05] LABS: PLT CLUMP 1; Red Cell Distribution Width 11.8 % (11.0-16.0); SCAN SMEAR FLAG 1
[2024-07-13 08:07] LABS: Basophils Percent Auto 0.5 % (0-2); Eosinophils Absolute Auto 0.1 X10*3/uL (0.0-0.4); Hematocrit 39.8 % (37.0-47.0); Hemoglobin 13.1 g/dl (12.0-16.0); Imm Gran Abs Auto 0.04 X10*3/uL (0.00-0.03); Imm Gran Pct Auto 0.5 % (0.0-0.4); Lymphocytes Absolute Auto 1.7 X10*3/uL (1.2-4.9); Lymphocytes Percent Auto 19.1 % (20-40); Mean Corpuscular HGB Conc 32.9 g/dl (31.0-35.0); Mean Corpuscular Hemoglobin 28.9 pg (27.0-33.0); Mean Corpuscular Volume 87.9 fL (80.0-98.0); Mean Platelet Volume 10.1 fL (9.4-12.3); Monocytes Absolute Auto 0.5 X10*3/uL (0.1-1.2); Monocytes Percent Auto 5.2 % (2-11); Neutrophils Absolute Auto 6.5 x10*3/uL (2.0-8.3); Neutrophils Percent Auto 73.7 % (45-73); Red Blood Count 4.53 X10*6/uL (4.20-5.50)
[2024-07-13 08:10] VITALS: BP 108/52; PULSE 78
[2024-07-13 08:11] VITALS: BP 121/57; BP 122/65; PULSE 74; PULSE 78
[2024-07-13 08:11] LABS: Prothrombin Time 12.2 SEC (10.9-12.4)
[2024-07-13 08:12] LABS: Platelet Count 134 X10*3/uL (160-400); White Blood Count 8.8 X10*3/uL (4.8-10.8)
[2024-07-13 08:19] LABS: Alanine Aminotransferase 16 U/L (0-31); Albumin Level 3.9 g/dL (3.5-5.0); Alkaline Phosphatase 58 U/L (39-117); Anion Gap 9 (12-20); Aspartate Amino Transferase 22 U/L (5-31); Bilirubin Total 0.2 mg/dL (0.0-1.0); Blood Urea Nitrogen 13 mg/dL (9-16); Calcium 8.6 mg/dL (8.4-10.2); Carbon Dioxide 24 mmol/L (22-29); Chloride 109 mmol/L (96-108); Creatinine Clr Calc Pharmacy 61.2; Estimated Glomerular Filt Rate > 60; Glucose Random 95 mg/dL (60-115); Lipase 22 U/L (8-78); Magnesium 1.8 mg/dL (1.6-2.6); Potassium 3.8 mmol/L (3.3-5.1); Sodium 138 mmol/L (135-145); Total Protein 6.8 g/dL (6.5-8.0)
[2024-07-13 08:25] LABS: B Type Natriuretic Peptide 13 pg/mL (<100)
[2024-07-13 08:27] LABS: Troponin-I High Sensitivity < 2.7 ng/L (<3.5-17.0)
[2024-07-13 08:35] LABS: Appearance Urine Hazy; Color Urine Yellow; Glucose Urine UA Negative (Negative); Leukocyte Esterase Urine Negative (Negative); Nitrite Urine Negative (Negative); Specific Gravity - Urine <= 1.005 (1.005-1.025); UMIC TRIGGER UACC YES; Urine Blood Trace (Negative); Urine Ketones Negative (Negative); Urine Protein Negative (Neg-Trace)
[2024-07-13 08:37] LABS: UPreg QC Valid YES; Urine Pregnancy NEGATIVE (NEGATIVE)
[2024-07-13 08:42] LABS: Influenza A PCR NEGATIVE (Negative); Influenza B PCR NEGATIVE (Negative); Resp Syncy Virus RNA Qual PCR NEGATIVE (Negative); SARS COV2 PCR INHOUSE NEGATIVE (Negative)
[2024-07-13 08:43] LABS: Bacteria Urine None Seen (None Seen); RBC Urine 0-2 /HPF (0-2); Squamous Epithelial Cell Urine 0-2 /HPF (0-2); WBC Urine 0-5 /HPF (0-5)
[2024-07-13 10:00] VITALS: BP 116/69; PULSE 74; RESP 14; TEMP 36.8; O2SAT 100
[2024-07-13 11:36] VITALS: BP 116/69; PULSE 74; RESP 14; TEMP 36.8; O2SAT 100
== END 2024-07-13 12:36 | disposition home or self-care (01) ==
PROVIDERS: Nurse Practitioner Family; Emergency Provider Emergency Medicine Emergency Medical Services; PCP Internal Medicine
DX: R42 Dizziness and giddiness (principal); R11.2 Nausea with vomiting, unspecified; R06.02 Shortness of breath; Z79.899 Other long term (current) drug therapy; Z03.818 Encounter for observation for suspected exposure to other biological agents ruled out
CPT/HCPCS: 0241U; 36415; 70450; 80053; 81001; 81025; 83690; 83735; 83880; 84484; 85025; 85610; 93005; 99284

== ENCOUNTER → 2024-07-13 06:42 | Outpatient (BNV) | payer OTHER, SELFPAY | PROVIDERS: Emergency Provider Emergency Medicine Emergency Medical Services; PCP Internal Medicine; Visit Provider Internal Medicine | DX: R42 Dizziness and giddiness (principal) | CPT/HCPCS: 93010 ==

== ENCOUNTER 2024-10-14 19:42 | Emergency (ER) | payer OTHER, SELFPAY ==
--- NOTE | ~2024-10-14 | US_ITS ---
CLINICAL HISTORY: cbd, GB US abdomen limited Comparison: None Findings: The gallbladder is normal. There is no sonographic Morel sign. The common bile duct measures 2 mm. The main portal vein is antegrade. IMPRESSION: Unremarkable appearance of the gallbladder. No biliary ductal dilation. This document has been electronically signed by: Cristin Amezquita MD on 10/14/2024 21:15:45
--- NOTE | ~2024-10-14 | XR_ITS ---
CLINICAL HISTORY: pain 1 view abdomen Comparison: None Findings: No pneumoperitoneum or pneumatosis. Moderate volume formed fecal material. No significant rectosigmoid fecal load. No abnormal calcifications. No acute fractures. IMPRESSION: The bowel gas pattern is within normal limits. This document has been electronically signed by: Cristin Amezquita MD on 10/14/2024 20:50:16
--- NOTE | 2024-10-14 19:55 | ED_ITS ---
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 no fever no chills no radiation of the pain no history of pancreatitis no history of gallstones Related Data Previous Rx's ?Medication ?Instructions ?Recorded meclizine 25 mg tablet 25 mg PO BID PRN dizziness #14 tabs 07/13/24 pantoprazole 40 mg tablet,delayed 40 mg PO DAILY #30 tabs 10/15/24 release (Protonix) Allergies Allergy/AdvReac Type Severity Reaction Status Date / Time No Known Drug Allergies Allergy Unknown Verified 10/15/24 11:15 Review of Systems 2 Review of Systems: Yes all other systems are reviewed and are negative PMFSH Past Medical History Medical History Anxiety and depression Lumbago History of COVID-19 Hx of unilateral nephrectomy Hepatitis A Juvenile seizure disorder Surgical History History of nephrectomy, left Family History Family History Father No problems noted. 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 Oriented X3. No acute distress. Eyes: PERRLA, No Nystagmus ENT: Pharynx normal. Oral Mucosa moist Neck: Normal inspection. Neck supple. CVS: Normal heart rate and rhythm. Pulses normal. Respiratory: No respiratory distress. Equal air entry bilateral, no wheezing/rales/rhonchi Abdomen: Soft and mild deep epigastric tenderness no rebound tenderness or guarding Morel sign neg Bowel sounds are present, no mass palpable, no CVA tenderness Skin: Skin warm and dry. Normal skin color. Normal skin turgor. Extremities: No lower extremity edema. No calf tenderness Neuro: Oriented X 3. No motor deficit. Course Course Course Narrative: This is a rapid medical exam performed by Chiara Ann PA-C. The patient is a 49-year-old female who presents with abdominal pain. Pain over upper abdomen is nonradiating. Associated constipation. No exact postprandial symptoms, her symptoms seem worse at night. On exam her abdomen is soft nontender nondistended no guarding. We will be screening basic labs, LFTs lipase an ultrasound of the right upper abdomen and a KUB. Patient was stable and can return to the waiting room pending her full medical assessment. Medical Decision Making Medical Decision Making [facility] Narrative: Patient with single kidney comes here with epigastric tenderness for last 1 month ultrasound was negative kidney function slightly elevated creatinine to 1.4 baseline is less than 1 patient admit that she not drinking enough fluids urine is negative for UTI patient's bili follow up with her financial reporting consultant possibly she has a gastritis Differential Diagnosis Differential Diagnoses: The differential diagnosis associated with the presentation includes Cholelithiasis/cholecystitis/UTI/gastritis Lab Data [facility] Lab Attestation statement: I reviewed the patient's lab results. 10/14/24 20:05 10/14/24 20:05 Labs: Lab Results 10/14/24 10/14/24 Range/Units 20:05 23:24 WBC 9.3 (4.8-10.8) X10*3/uL RBC 4.62 (4.20-5.50) X10*6/uL Hgb 13.4 (12.0-16.0) g/dl Hct 40.2 (37.0-47.0) % MCV 87.0 (80.0-98.0) fL MCH 29.0 (27.0-33.0) pg MCHC 33.3 (31.0-35.0) g/dl RDW 11.9 (11.0-16.0) % Plt Count 177 D (160-400) X10*3/uL MPV 10.5 (9.4-12.3) fL Immature Gran % (Auto) 0.2 (0.0-0.4) % Neut % (Auto) 48.9 (45-73) % Lymph % (Auto) 41.7 H (20-40) % [place] % (Auto) 6.9 (2-11) % Eos % (Auto) 1.7 (0-4) % Baso % (Auto) 0.6 (0-2) % Lymph # (Auto) 3.9 (1.2-4.9) X10*3/uL [place] # (Auto) 0.6 (0.1-1.2) X10*3/uL Eos # (Auto) 0.2 (0.0-0.4) X10*3/uL Baso # (Auto) 0.1 (0.0-0.2) X10*3/uL Abs Immat Gran (auto) 0.02 (0.00-0.03) X10*3/uL Absolute Neuts (auto) 4.5 (2.0-8.3) x10*3/uL Absolute Nucleated RBC 0.000 (0.0-0.012) X10*3/uL Nucleated RBC % (auto) 0.0 (0.0-0.2) /100WBC Sodium 139 (135-145) mmol/L Potassium 4.4 (3.3-5.1) mmol/L Chloride 107 (96-108) mmol/L Carbon Dioxide 26 (22-29) mmol/L Anion Gap 10 L (12-20) BUN 18 H (9-16) mg/dL Creatinine 1.42 H (0.5-1.4) mg/dL Estim Creat Clear Calc 41.1 Estimated GFR 40 Random Glucose 95 (60-115) mg/dL Calcium 9.5 D (8.4-10.2) mg/dL Magnesium 1.9 (1.6-2.6) mg/dL Total Bilirubin 0.3 (0.0-1.0) mg/dL AST 18 (5-31) U/L ALT 13 (0-31) U/L Alkaline Phosphatase 72 (39-117) U/L Total Protein 7.4 (6.5-8.0) g/dL Albumin 4.1 (3.5-5.0) g/dL Lipase 27 (8-78) U/L Beta HCG, Quant < 2 mIU/mL Urine Color Yellow Urine Appearance Turbid Urine pH 7.5 (5.0-9.0) Ur Specific [place]lin 1.020 (1.005-1.025) Urine Protein Negative (Neg-Trace) mg/dL Urine Glucose (UA) Negative (Negative) mg/dL Urine Ketones Trace (Negative) mg/dL Urine Blood Negative (Negative) Urine Nitrite Negative (Negative) Ur Leukocyte Esterase Small (1+) H (Negative) Urine RBC 0-2 (0-2) /HPF Urine WBC 0-5 (0-5) /HPF Ur Squamous Epith Cells 3-5 (0-2) /HPF Urine Bacteria Trace (None Seen) Hyaline Casts 0-2 (0-2) /LPF Independent Interpretation I performed an independent interpretation of an: Ultrasound Radiology Impression Discussion of test interpretation with radiology: I have reviewed the radiologist's reading. Radiologist Impression: Negative ultrasound for gallstones Discharge Plan Discharge Clinical Impression: Gastritis, Acute renal insufficiency Patient Disposition: Home, Self-Care Instructions: Gastritis (ED), Impaired Kidney Function (ED) Additional Instructions: Drink plenty of fluids Follow up with your PCP/financial reporting consultant for kidney recheck Protonix daily for gastritis Follow up with aircraft engine dismantler/PCP if not better Avoid fried and spicy food Prescriptions: New pantoprazole [Protonix] 40 mg tablet,delayed release (DR/EC) 40 mg PO DAILY Qty: 30 0RF No Action meclizine 25 mg tablet 25 mg PO BID PRN (Reason: dizziness) Qty: 14 0RF Interventions: ED Discharge Assessment Last Done: 10/15/24 00:42 Discharge Date/Time: 10/15/24 00:45 Print Language: Namibian
[2024-10-14 19:56] VITALS: BP 137/78; PULSE 73; RESP 16; TEMP 36.3; O2SAT 99; BMI 27.9
[2024-10-14 20:10] LABS: MANUAL DIFF FLAG NO
[2024-10-14 20:12] LABS: Basophils Absolute Auto 0.1 X10*3/uL (0.0-0.2); Basophils Percent Auto 0.6 % (0-2); Eosinophils Absolute Auto 0.2 X10*3/uL (0.0-0.4); Eosinophils Percent Auto 1.7 % (0-4); Hematocrit 40.2 % (37.0-47.0); Hemoglobin 13.4 g/dl (12.0-16.0); Imm Gran Abs Auto 0.02 X10*3/uL (0.00-0.03); Imm Gran Pct Auto 0.2 % (0.0-0.4); Lymphocytes Absolute Auto 3.9 X10*3/uL (1.2-4.9); Lymphocytes Percent Auto 41.7 % (20-40); Mean Corpuscular HGB Conc 33.3 g/dl (31.0-35.0); Mean Platelet Volume 10.5 fL (9.4-12.3); Monocytes Absolute Auto 0.6 X10*3/uL (0.1-1.2); Monocytes Percent Auto 6.9 % (2-11); Neutrophils Absolute Auto 4.5 x10*3/uL (2.0-8.3); Neutrophils Percent Auto 48.9 % (45-73); Platelet Count 177 X10*3/uL (160-400); Red Blood Count 4.62 X10*6/uL (4.20-5.50); Red Cell Distribution Width 11.9 % (11.0-16.0); White Blood Count 9.3 X10*3/uL (4.8-10.8)
[2024-10-14 20:32] LABS: Alanine Aminotransferase 13 U/L (0-31); Albumin Level 4.1 g/dL (3.5-5.0); Alkaline Phosphatase 72 U/L (39-117); Anion Gap 10 (12-20); Aspartate Amino Transferase 18 U/L (5-31); Bilirubin Total 0.3 mg/dL (0.0-1.0); Blood Urea Nitrogen 18 mg/dL (9-16); Calcium 9.5 mg/dL (8.4-10.2); Carbon Dioxide 26 mmol/L (22-29); Chloride 107 mmol/L (96-108); Creatinine Clr Calc Pharmacy 41.1; Estimated Glomerular Filt Rate 40; Glucose Random 95 mg/dL (60-115); Lipase 27 U/L (8-78); Magnesium 1.9 mg/dL (1.6-2.6); Potassium 4.4 mmol/L (3.3-5.1); Sodium 139 mmol/L (135-145); Total Protein 7.4 g/dL (6.5-8.0)
[2024-10-14 20:35] LABS: HCG Quantitative < 2 mIU/mL
[2024-10-14 23:28] VITALS: BP 128/68; PULSE 80; RESP 16; TEMP 36.8; O2SAT 99
--- NOTE | 2024-10-14 23:33 | PC.NURSE ---
Patient is alert and oriented x4, VSS. Patient reports abdominal pain resolved. Patient denies nausea, vomiting, diarrhea, discomfort with urination. Urine specimen collected via clean catch and sent to lab for processing. Patient currently resting on a stretcher bed, no apparent distress noted, call camejo in patient's reach.
[2024-10-15] LABS: Appearance Urine Turbid; Color Urine Yellow; Glucose Urine UA Negative (Negative); Leukocyte Esterase Urine Small (1+) (Negative); Nitrite Urine Negative (Negative); PH 7.5 (5.0-9.0); UMIC TRIGGER UACC YES; Urine Blood Negative (Negative); Urine Ketones Trace mg/dL (Negative); Urine Protein Negative (Neg-Trace)
[2024-10-15 00:18] LABS: Bacteria Urine Trace (None Seen); Hyaline Casts Urine 0-2 /LPF (0-2); RBC Urine 0-2 /HPF (0-2); UACC Culture Trigger YES; WBC Urine 0-5 /HPF (0-5)
[2024-10-15 00:42] VITALS: BP 126/61; PULSE 81; RESP 18; TEMP 37; O2SAT 98
== END 2024-10-15 00:45 | disposition home or self-care (01) ==
PROVIDERS: Physician Assistant Medical; Emergency Provider Internal Medicine; PCP Internal Medicine
DX: N28.9 Disorder of kidney and ureter, unspecified (principal); K29.70 Gastritis, unspecified, without bleeding; R10.13 Epigastric pain; R10.10 Upper abdominal pain, unspecified; Z90.5 Acquired absence of kidney
CPT/HCPCS: 36415; 74018; 76705; 80053; 81001; 81003; 83690; 83735; 84702; 85025; 87086; 99284

== ENCOUNTER → 2024-10-14 19:59 | Outpatient (BNV) | payer OTHER, SELFPAY | PROVIDERS: PCP Internal Medicine; Visit Provider Radiology Diagnostic Radiology | DX: R10.9 Unspecified abdominal pain (principal) | CPT/HCPCS: 74018; 76705 ==

== ENCOUNTER 2024-10-15 10:03 | Outpatient (AMB) | payer OTHER, SELFPAY ==
[2024-10-15 11:14] VITALS: BP 116/70; PULSE 83; RESP 17; TEMP 36.7; O2SAT 98; BMI 27.9
--- NOTE | 2024-10-15 11:14 | A.OFFPC_ITS ---
Vital Signs 10/15/24 11:14 Height 5 ft Weight 143 lb BMI 27.9 BP 116/70 Blood Pressure Location Lt brachial Position Sitting Respiration 17 Pulse 83 Pulse Source Pulse Oximeter Temp 98.1 F Temp Source Oral Pulse Oximetry (%) 98 Oxygen Delivery Method Room Air Intake Visit Reasons: [facility] [place] [place] ER f/u Intake Note: Pt is here today for her ER f/u from 10/14/24 Allergies No Known Drug Allergies Allergy (Verified 10/19/24 20:22) Unknown Medication List - Last Reconciled 10/19/24 by Tessie Cerrato MD meclizine 25 mg PO BID PRN pantoprazole (Protonix) 40 mg PO DAILY Tobacco use date assessed: 10/15/24 Dental Screening Dental Screen Date: 10/15/24 HPI [facility] [place] [place] ER f/u HPI Details 49-year-old lady with a single kidney he re today for follow-up after recent ER visit where she presented with epigastric tenderness for last 1 month. Ultrasound was negative, kidney function slightly elevated creatinine to 1.4 , with baseline is less than 1. Patient states that she does not drink enough fluids her urine was negative for UTI. She was empirically started on pantoprazole which she has not yet started taking, still with mild recurrent epigastric pain, but patient very concerned about declining renal function. [facility] Medical History Anxiety and depression Lumbago History of COVID-19 Hx of unilateral nephrectomy Hepatitis A Juvenile seizure disorder Surgical History History of nephrectomy, left Family History Father No problems noted. 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 How often do you have six or more drinks on one occasion?: Never Total Score: 0 [place]-7 AMB Questionnaire AFR[place]-7 Date [place] - 7 assessed: 01/30/24 Source: Developed by Drs. Eber Werner, Dee Jaimes, Elder Payne and colleagues, with an educational emily from [employer]. Review of Systems Const Denies fatigue, Denies fever(s), Denies lethargy and Denies poor appetite ENT Reports no additional complaints Card Denies chest pain, Denies irregular heart rhythm, Denies leg edema, Denies lightheadedness and Denies dyspnea Resp Denies cough and Denies dyspnea GI Reports as per HPI, Denies melena, Denies hematochezia, Denies change in bowel habits, Denies heartburn and Denies nausea Reports no additional complaints Musc Denies arthralgias and Denies muscle weakness Neuro Reports no additional complaints Endo Denies fatigue Aller/Immun Reports no additional complaints Physical exam (Primary Care) Vital Signs: Last Vital Signs Temp 98.1 F 10/15/24 11:14 Pulse 83 10/15/24 11:14 Resp 17 10/15/24 11:14 BP 116/70 10/15/24 11:14 Pulse Ox 98 10/15/24 11:14 Oxygen Delivery Method Room Air 10/15/24 11:14 BMI result Body Mass Index 27.9 Tobacco/Smoking Status: Tobacco use Status Tobacco use date assessed 10/15/24 10/15/24 11:19 Patient Tobacco Use Status Never used Tobacco 10/15/24 11:19 e-Cigarette/Vaping Use Never Used 10/15/24 11:19 Thrive Assessment: Date of Thrive Assessment Date Thrive assessed 01/30/24 10/15/24 11:19 Const General: no acute distress Nutritional Appearance: average body habitus Orientation/consciousness: patient oriented x3 HENMT Head: Yes normocephalic Ears: external ears normal General nose exam: Normal external nose present Face and sinus: Yes face symmetric Mouth: Normal oral and palatal mucosa present, tongue normal, oropharynx normal and moist mucous membranes Neck Neck: Yes full ROM, Yes no lymphadenopathy and Yes supple Resp Effort & Inspection: normal respiratory effort and able to speak in complete sentences Auscultation: clear to auscultation bilaterally Cardio Rate: regular rate Rhythm: regular rhythm Heart sounds: S1 normal heart sound present and S2 normal heart sound present GI Inspection: Yes normal to inspection Palpation (GI): Soft to palpation, nontender, no guarding and no masses Auscultation: normal bowel sounds Skin General skin exam: no rashes or lesions noted Neuro General: patient oriented x3, gait normal, tone normal, moves all extremities, Normal light touch and pain sensation and no focal motor deficits Gait exam (Neuro): Normal gait present Extrem General: Yes full ROM, Yes no joint enlargement, Yes no clubbing, cyanosis or edema, Yes no pedal edema, Yes no calf tenderness and Yes normal gait Coding Level of Care Code Est Pt Level 4 (12736) Complex EM visit Add On G2211 Diagnoses Acute renal insufficiency N28.9 Acute epigastric pain R10.13 Assessment & Plan Assessment & Plan (1) Acute renal insufficiency: Code(s): N28.9 - Disorder of kidney and ureter, unspecified Category: Medical Plan: Patient only with a single kidney, advised stay well-hydrated, stat referral made with for nephrology consult (2) Acute epigastric pain: Code(s): R10.13 - Epigastric pain Plan: May take Nexium which she has already at home, 1 capsule an hour before eating. Take it only as needed. Upper GI series ordered. Avoidance of triggers for heartburn mainly had a acidic foods, spicy, fried grilled foods, do not lie down right away after eating. Abdominal ultrasound ruled out presence of gallstone Orders: Orders Basic Metabolic Panel Fasting 10/15/24 N28.9 - Disorder of kidney and ureter, unspecified, Z90.5 - Acquired absence of kidney [place] upper GI series 10/15/24 R10.13 - Epigastric pain Referrals Nephrology Referral N28.9 - Disorder of kidney and ureter, unspecified, Z90.5 - Acquired absence of kidney
== END 2024-10-15 11:53 | disposition home or self-care (01) ==
LOC: HO.HMCC 10:03
PROVIDERS: PCP Internal Medicine; Visit Provider Internal Medicine
DX: N28.9 Disorder of kidney and ureter, unspecified (principal); R10.13 Epigastric pain

== ENCOUNTER 2024-10-17 14:30 | Outpatient (AMB) | payer OTHER, SELFPAY ==
--- NOTE | 2024-10-17 14:49 | HO.NEPHOV_ITS ---
Vital Signs 10/17/24 14:50 Height 5 ft Weight 139 lb 6 oz BMI 27.2 BP 100/60 Blood Pressure Location Rt brachial Position Sitting Pulse 101 H Pulse Source Pulse Oximeter Pulse Oximetry (%) 99 Oxygen Delivery Method Room Air Intake Visit Reasons: Stat Referral - Acute renal insufficiency Angiography Technologist Required: No Accompanied by: Spouse Allergies No Known Drug Allergies Allergy (Verified 10/19/24 20:22) Unknown HPI Comments Details: I had the privilege of seeing Gracie who is a 49 year old lady with acquired solitary kidney with recent DARREN. She had donated her kidney to her . She recently had an ER visit where she presented with epigastric tenderness for last 1 month. Ultrasound was negative & further work up showed her creatinine to be 1.4( baseline is less than 1). Patient states that she does not drink enough fluids . She has been having some GI symptoms from drinking coffee. In the ER , her urine was negative for UTI. She was empirically started on pantoprazole which she has not yet started taking. She is not a diabetic. She does not have proteinuria or edema. She has no urinary symptoms or recent antibiotic intake. She recently did not have any hematuria, epistaxis, photosensitivity, joint swelling, flank pain or orthostatic symptoms. She has not been taking any NSAID's. She is very concerned about decline in renal function. [facility] Medical History Anxiety and depression Lumbago History of COVID-19 Hx of unilateral nephrectomy Hepatitis A Juvenile seizure disorder Surgical History History of nephrectomy, left Family History Father No problems noted. 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 Cognitive needs: No Hearing needs: No Vision needs: Yes Review of Systems Const All systems reviewed & are unremarkable except as noted in HPI and below Physical Exam Vital Signs: Last Vital Signs Pulse 101 H 10/17/24 14:50 BP 100/60 10/17/24 14:50 Pulse Ox 99 10/17/24 14:50 Oxygen Delivery Method Room Air 10/17/24 14:50 BMI result Body Mass Index 27.2 Const General: comfortable and no acute distress Orientation/consciousness: patient oriented x3 HEENT Head: Yes normocephalic Mouth: Normal oral and palatal mucosa present Eyes EOM: EOMs intact bilaterally Neck Neck: Yes supple Resp Auscultation: clear to auscultation bilaterally Cardio Jugular venous distension: no JVD Rate: regular rate GI Palpation (GI): Soft to palpation Auscultation: normal bowel sounds General: Yes no CVA tenderness Back/Spine/Pelvis Back: no CVA tenderness Skin General skin exam: no rashes or lesions noted Neuro General: patient oriented x3 and moves all extremities Extrem General: Yes no pedal edema Results Reviewed Nephrology Results: Hgb 13.4 g/dl (12.0-16.0) 10/14/24 WBC 9.3 X10*3/uL (4.8-10.8) 10/14/24 Plt Count 177 X10*3/uL (160-400) 10/14/24 Sodium 137 mmol/L (135-145) 10/20/24 Potassium 3.9 mmol/L (3.3-5.1) 10/20/24 Chloride 105 mmol/L (96-108) 10/20/24 Carbon Dioxide 25 mmol/L (22-29) 10/20/24 BUN 8 mg/dL (9-16) L 10/20/24 Creatinine 0.98 mg/dL (0.5-1.4) 10/20/24 Calcium 9.3 mg/dL (8.4-10.2) 10/20/24 Urine Protein Negative mg/dL (Neg-Trace) 10/14/24 Assessment & Plan Assessment & Plan (1) DARREN (acute kidney injury): Code(s): N17.9 - Acute kidney failure, unspecified Category: Medical (2) Solitary kidney, acquired: Code(s): Z90.5 - Acquired absence of kidney Category: Medical Plan Gracie has DARREN likely due to tubular injury. Unlikely to be GN/AIN but still in the differential. Her BP is normal and has no edema or hematuria. All these have been explained in detail. I asked her to maintain good hydration and repeat blood work. I did not make any medication changes. All her and her 's questions were answered. F/U appointment given Orders: Orders Protein Creatinine Ratio, Ur 2 Weeks N17.9 - Acute kidney failure, unspecified Creatinine 2 Weeks N17.9 - Acute kidney failure, unspecified Electrolytes 2 Weeks N17.9 - Acute kidney failure, unspecified Myeloperoxidase Antibody 2 Weeks N17.9 - Acute kidney failure, unspecified Complement C3 2 Weeks N17.9 - Acute kidney failure, unspecified Immunofixation Pnl, Serum 2 Weeks N17.9 - Acute kidney failure, unspecified Creatinine 3 Weeks N17.9 - Acute kidney failure, unspecified UA and rflx microscopic 2 Weeks N17.9 - Acute kidney failure, unspecified Blood Urea Nitrogen 2 Weeks N17.9 - Acute kidney failure, unspecified Anti DNA DS Antibody 2 Weeks N17.9 - Acute kidney failure, unspecified Proteinase 3 PR3 Antibodies 2 Weeks N17.9 - Acute kidney failure, unspecified Anti Glomerular Basement Memb 2 Weeks N17.9 - Acute kidney failure, unspecified Complement C4 2 Weeks N17.9 - Acute kidney failure, unspecified Phospholipase A2 Receptor Pnl 2 Weeks N17.9 - Acute kidney failure, unspecified Blood Urea Nitrogen 3 Weeks N17.9 - Acute kidney failure, unspecified Electrolytes 3 Weeks N17.9 - Acute kidney failure, unspecified Coding Level of Care Code New Pt Level 4 (17814) Diagnoses DARREN (acute kidney injury) N17.9 Solitary kidney, acquired Z90.5
[2024-10-17 14:50] VITALS: BP 100/60; PULSE 101; O2SAT 99; BMI 27.2
== END 2024-10-17 15:29 | disposition home or self-care (01) ==
LOC: HO.HKA 14:31
PROVIDERS: PCP Internal Medicine; Visit Provider Internal Medicine Nephrology
DX: N17.9 Acute kidney failure, unspecified (principal); Z90.5 Acquired absence of kidney
CPT/HCPCS: 99204

== ENCOUNTER → 2024-10-17 14:30 | Outpatient (BNVA) | payer OTHER, SELFPAY | PROVIDERS: PCP Internal Medicine; Visit Provider Internal Medicine Nephrology ==

== ENCOUNTER 2024-10-20 07:04 | Outpatient (REF) | payer OTHER, SELFPAY ==
[2024-10-20 08:42] LABS: Anion Gap 11 (12-20); Blood Urea Nitrogen 8 mg/dL (9-16); Calcium 9.3 mg/dL (8.4-10.2); Carbon Dioxide 25 mmol/L (22-29); Chloride 105 mmol/L (96-108); Estimated Glomerular Filt Rate > 60; Glucose Fasting 92 mg/dL (60-99); Potassium 3.9 mmol/L (3.3-5.1); Sodium 137 mmol/L (135-145)
[2024-10-20 09:10] LABS: HBS Num1 5.83 mIU/mL (0-7.99); ~Hepatitis B Surface Antibody NONREACTIVE (Nonreactive)
[2024-10-21 20:38] LABS: Rubella IgG Antibody 1.81 Index; Rubeola IgG (Measles) >300.00 AU/mL
[2024-10-23 03:23] LABS: TS Negative Control Passed; TS Panel A 2; TS Panel B 1; TS Positive Control Passed; TSpotTB Negative (Negative)
== END 2024-10-20 07:05 | disposition home or self-care (01) ==
LOC: HO.LAB 07:04
PROVIDERS: PCP Internal Medicine; Visit Provider Internal Medicine
DX: Z01.84 Encounter for antibody response examination (principal); Z90.5 Acquired absence of kidney; N28.9 Disorder of kidney and ureter, unspecified
CPT/HCPCS: 36415; 80048; 86481; 86706; 86735; 86762; 86765; 86787

== ENCOUNTER 2024-10-31 06:19 | Outpatient (REF) | payer OTHER, SELFPAY ==
[2024-10-31 07:21] LABS: Anion Gap 12 (12-20); Blood Urea Nitrogen 12 mg/dL (9-16); Carbon Dioxide 24 mmol/L (22-29); Chloride 107 mmol/L (96-108); Estimated Glomerular Filt Rate > 60; Potassium 4.2 mmol/L (3.3-5.1); Sodium 139 mmol/L (135-145)
[2024-10-31 07:22] LABS: Appearance Urine Clear; Color Urine Yellow; Glucose Urine UA Negative (Negative); Leukocyte Esterase Urine Trace (Negative); Nitrite Urine Negative (Negative); UMIC TRIGGER UA YES; Urine Blood Negative (Negative); Urine Ketones Negative (Negative); Urine Protein Negative (Neg-Trace)
[2024-10-31 07:28] LABS: Bacteria Urine None Seen (None Seen); Hyaline Casts Urine 0-2 /LPF (0-2); RBC Urine 0-2 /HPF (0-2); Squamous Epithelial Cell Urine 0-2 /HPF (0-2); WBC Urine 0-5 /HPF (0-5)
[2024-10-31 07:32] LABS: Creatinine Urine 54.17 mg/dL; Total Protein Urine Random < 7 mg/dL (<12)
[2024-11-03 18:27] LABS: Complement C3 128 mg/dL (83-193)
[2024-11-04 17:37] LABS: Anti DNA DS Antibody <1 IU/mL; Anti Glomerular Basement Memb <1.0 AI; Myeloperoxidase Antibody <1.0 AI; Proteinase 3 PR3 Antibodies <1.0 AI
[2024-11-05 01:03] LABS: IgA 236 mg/dL (47-310); IgG 1242 mg/dL (600-1640); IgM 167 mg/dL (50-300)
[2024-11-06 23:08] LABS: Phospholipase A2 IgG ELISA <4 RU/mL; Phospholipase A2 IgG IFA NEGATIVE (NEGATIVE)
== END 2024-10-31 06:20 | disposition home or self-care (01) ==
LOC: HO.LAB 06:19
PROVIDERS: PCP Internal Medicine; Visit Provider Internal Medicine Nephrology
DX: N17.9 Acute kidney failure, unspecified (principal)
CPT/HCPCS: 36415; 80051; 81001; 82565; 82570; 82784; 83520; 84156; 84520; 86021; 86160; 86225; 86255; 86334

== ENCOUNTER 2024-11-07 06:19 | Outpatient (REF) | payer OTHER, SELFPAY ==
--- OUTSIDE RECORDS SUMMARY | 2024-11-07 06:22 | XMS_ITS | Clinical Summary ---
Author Organization [facility] Address [address] [place] [address] Phone Care Team Providers Care Astrochemist Name Role Phone Tessie Varela MD Primary Care Provider [phone]- [phone] Encounters Date Type Department Care Team Description 10/09/2024 Telephone Obstetrics & Gynecology - [address] [phone] Ana Yoon CNM Vaginal Bleeding from Last 3 Months Surgical History Surgery Date Site/Laterality Comments OTHER SURGICAL HISTORY 11/29/2016 PROCEDURE: [place] DONOR NEPHRECTOMY OPEN LIVING DONOR; COMMENT: pt donated kidney Medical History Medical History Date Comments History of hepatitis B virus infection DX:History of hepatitis B virus infection; COMMENT: in childhood, has also been vaccinated prior to entering school Family History Medical History Relation Name Comments No Known Problems Father Dementia Maternal Grandfather Other: Heart Disease Maternal Grandmother Arthritis Mother Hypertension Mother Osteoporosis Mother Liver cancer Mother's side 1 aunt Breast cancer Neg Hx Ovarian cancer Neg Hx Relation Name Status Comments Father Maternal Grandfather Maternal Grandmother Mother Mother's side 1 aunt Alive Mother's side 2 cousin Alive Social History Tobacco Use Types Packs/Day Years Used Date Smoking Tobacco: Never Smokeless Tobacco: Never Alcohol Use Standard Drinks/Week Comments Not Currently 0 (1 standard drink = 0.6 oz pur e alcohol) Comments Unknown Sex and Gender Information Value Date Recorded Sex Assigned at Female 07/25/2024 10:49 AM EST Legal Sex Female 3:16 AM EST Gender Identity Female 07/25/2024 10:49 AM EST Sexual Orientation Straight 07/25/2024 10 :49 AM EST Obstetrics History Last Filed Vital Signs Vital Sign Reading Time Taken Comments Blood Pressure 103/71 07/06/2023 9:45 AM EST Pulse 75 07/06/2023 9:45 AM EST Temperature - - Respiratory Rate - - Oxygen Saturation - - Inhaled Oxygen Concentration - - Weight 63.5 kg (140 lb) 07/06/2023 9:45 AM EST Height 152.4 cm (5') 07/06/2023 9:45 AM EST Body Mass Index 27.34 07/06/2023 9:45 AM EST Plan of Treatment Upcoming Encounters Date Type Department Care Team (Late st Contact Info) Description 01/08/2025 8:45 AM EDT Office Visit Obstetrics & Gynecology - [address] [phone] Ana Yoon, CNM [address] [place] [address] Health Maintenance Due Date Last Done Comments Hepatitis A Vaccines (1 of 2 - Risk 2-dose series) 1996 Hepatitis B Vaccines (1 of 3 - 19+ 3-dose series) 1996 Colorectal Cancer Screening: Colonoscopy 06/25/2022 Depression Screening 06/25/2022 HIV Screening 06/25/2022 Hepatitis C Screening 06/25/2022 Social Influencers of Health Screening 06/25/2022 COVID-19 Vaccine ( season) 2024 07/17/2021, 01/02/2021, 12/12/2020 Cervical Cancer Screening: Pap Smear 07/06/2024 07/06/2023, 03/04/2020 Influenza Vaccine (Season Ended) 2025 Breast Cancer Screening 01/20/2026 01/21/20, 01/18/2023, 01/16/2022, Additional history exists DTaP,Tdap,and Td Vaccines (3 - Td or Tdap) 05/29/2030 05/29/2020, 03/15/2018 HIB Vaccines Aged Out No longer eligi ble based on patient's age to complete this topic HPV Vaccines Aged Out No longer eligi ble based on patient's age to complete this topic IPV Vaccines Aged Out No longer eligi ble based on patient's age to complete this topic MMR Vaccines Aged Out No longer eligi ble based on patient's age to complete this topic Meningococcal ACWY Vaccine Aged Out N o longer eligible based on patient's age to complete this topic Meningococcal B Vaccine Aged Out No l onger eligible based on patient's age to complete this topic Pneumococcal Vaccine: Pediatrics (0 to 5 Years) and At-Risk Patients (6 to 64 Years) Aged Out No longer eligible based on patient's age to complete this topic RSV Immunization Patients Under 20 months Aged Out No longer eligible based on patient's age to complete this topic Varicella Vaccines Aged Out No longer eligible based on patient's age to complete this topic Procedures Procedure Name Priority Date/Time Associated Diagnosis Comments [facility] SCREENING DIGITAL Routine 01/21/2024 10:48 AM EDT Encounter for screening mammogram for malignant neoplasm of breast PAP SMEAR Routine 07/06/2023 from Last 3 Months or Most Recently Relevant to Health Maintenance Results * [facility] SCREENING DIGITAL (01/21/2024 10:48 AM EDT) Anatomical Region Laterality Modality Mammography 01/21/2024 7:39 AM EDT Narrative 01/21/2024 10:[address] [facility] Diagnostic Imaging Department [address] [place] [address] Patient: ??GRACIE BONNER ?/Age/Sex: 1975 - 48 - F Unit#: ??[id number] ? Location/Status: ??SPDIMAM/REG CLI ? Mnemonic/Ordering Site: ??DIGSC/SPMAM Ordering Physician: ??TESSIE VARELA MD Renee Screening Digital - 01/21/24 - 0801 Report Status:Signed EXAM: [facility] Screening Digital EXAM DATE AND TIME: 01/21/2024 8:01 AM HISTORY: ??Screening. COMPARISON: ??01/18/23, 01/16/22, 01/15/21, 01/12/20, 01/13/19, 12/19/17 TECHNIQUE: Bilateral digital breast tomosynthesis was performed in the CC and MLO projections. Computer aided detection with [employer] 3D 3.1 was employed. TISSUE DENSITY: c. The breasts are heterogeneously dense, which may obscure small masses. FINDINGS: A 6 mm asymmetry is seen in the upper right breast, MLO view only, possibly summation artifact. MLO spot compression tomosynthesis views and full lateral tomosynthesis views are recommended for further assessment. No grouped microcalcifications or areas of architectural distortion are seen. The skin and vascularity are unremarkable. IMPRESSION: 1. Right breast asymmetry, for which additional views are recommended. The patient will be called back. 2. Stable mammographic appearance of the left breast. No evidence of malignancy is seen. BI-RADS: ??Category 0: Incomplete - Need Additional Imaging Evaluation RECOMMENDATION(S): 1: Special mammographic view(s) needed RIGHT Dictating Physician: ??GINI VIRAMONTES MD Electronically Signed by: ??GINI VIRAMONTES MD Dic Date/Time: ??01/21/24 1739 Sign date/Time: ??01/21/24 1042 Procedure Note Gini Viramontes MD - 05/07/2024 [facility] Diagnostic Imaging Department [address] [place], [place] [id number] Patient: GRACIE BONNER /Age/Sex: 1975 - 48 - F Unit#: [id number] Location/Status: SPDIMAM/REG CLI Mnemonic/Ordering Site: [facility] Ordering Physician: TESSIE VARELA MD [facility] Screening Digital - 01/21/24 - 800 Report Status:Signed EXAM: [facility] Screening Digital EXAM DATE AND TIME: 01/21/2024 8:01 AM HISTORY: Screening. COMPARISON: 01/18/23, 01/16/22, 01/15/21, 01/12/20, 01/13/19, 12/19/17 TECHNIQUE: Bilateral digital breast tomosynthesis was performed in the CCand MLO projections. Computer aided detection with [employer] 3D 3.1was employed. TISSUE DENSITY: c. The breasts are heterogeneously dense, which mayobscure small masses. FINDINGS: A 6 mm asymmetry is seen in the upper right breast, MLO view only,possibly summation artifact. MLO spot compression tomosynthesis views and fulllateral tomosynthesis views are recommended for further assessment. No grouped microcalcifications or areas of architectural distortion areseen. The skin and vascularity are unremarkable. IMPRESSION: 1. Right breast asymmetry, for which additional views are recommended.The patient will be called back. 2. Stable mammographic appearance of the left breast. No evidence ofmalignancy is seen. BI-RADS: Category 0: Incomplete - Need Additional Imaging Evaluation RECOMMENDATION(S): 1: Special mammographic view(s) needed RIGHT Dictating Physician: GINI VIRAMONTES MD Electronically Signed by: GINI VIRAMONTES MD Dic Date/Time: 01/21/24 0940 Sign date/Time: 01/21/24 1048 us Tessie Varela MD IMG BI PROCEDURES Final Res ult * Pap smear (07/06/2023) 07/06/2023 Narrative HISTORICAL TESTING LAB RESULTING AGENCY - 07/20/2023 10:51 AM EST [id number] THINPREP PAP, IMAGED: NEGATIVE FOR SQUAMOUS INTRAEPITHELIAL LESION AND MALIGNANCY . ERICKA KATZ , BRIAN(ASCP) (CASE ELECTRONICALLY SIGNED 07 20 2023) RESULT OF APTIMA HIGH RISK HPV ASSAY: HIGH RISK HPV: ??NEGATIVE (SEROTYPES 16,18,31,33,35,39,45,51,52,56,58,59,66,68) COMPLETED ON 2023-07-12 ADEQUACY: SATISFACTORY ENDOCERVICAL/TRANSFORMATION ZONE COMPONENT PRESENT. SOURCE: THINPREP PAP HPV ANY DX: ??REFLEX 16 AND 18, CERVICAL, IMAGED CLINICAL INFORMATION: HPV ANY DIAGNOSIS. HORMONES, PAP HX NEGATIVE, LMP 07/01/23, [Z01.419] us Ana [facility] LAB CYTOLOGY ORDERABLES Final Result HISTORICAL TESTING LAB RESULTING AGENCY from Last 3 Months or Most Recently Relevant to Health Maintenance Insurance [facility] Care Teams Astrochemist Relationship Specialty Start Date End Date Tessie Varela MD [address] [place] [address] PCP - General Internal Medicine 12/28/16
[2024-11-07 07:47] LABS: Anion Gap 10 (12-20); Blood Urea Nitrogen 14 mg/dL (9-16); Carbon Dioxide 26 mmol/L (22-29); Chloride 106 mmol/L (96-108); Potassium 4.1 mmol/L (3.3-5.1); Sodium 138 mmol/L (135-145)
[2024-11-07 10:07] LABS: Estimated Glomerular Filt Rate > 60
== END 2024-11-07 06:20 | disposition home or self-care (01) ==
LOC: HO.LAB 06:19
PROVIDERS: PCP Internal Medicine; Visit Provider Internal Medicine Nephrology
DX: N17.9 Acute kidney failure, unspecified (principal)
CPT/HCPCS: 36415; 80051; 82565; 84520

== ENCOUNTER 2025-01-09 08:45 | Outpatient (REF) | payer OTHER, SELFPAY ==
--- NOTE | ~2025-01-09 | FL_ITS ---
EXAMINATION: XR FLUOROSCOPY UPPER GI WITH AIR CLINICAL INFORMATION: Epigastric pain COMPARISON: None available. TECHNIQUE: Routine upper GI air contrast study was performed in upright and lying position. FINDINGS: Allowing oral administration of thick barium and effervescent granules is normal propagation bolus from the oral cavity through the pharynx, esophagus into stomach without obstruction, narrowing or stricture. No retention of barium visualized in the valleculae or piriform sinuses. On placing patient in supine and prone the course, caliber and peristalsis stomach and duodenal bulb is normal. There are small gastric erosive changes in the body of the stomach . No gastric or duodenal ulceration seen. A small sliding hiatal hernia with mild gastroesophageal reflux. Mild increased gastric secretions are noted likely secondary to hyper acidity. FLUOROSCOPY TIME: 2 minute 41 seconds DOSE AREA PRODUCT: 2088 uGy-m2 (microgray-meter squared) FL/FL upper GI w air IMPRESSION: Small sliding hiatal hernia with mild gastroesophageal reflux. Increased gastric secretions suspicious for gastric acidity. Small gastric erosions are noted. Electronically signed by: Jacky Stewart MD 01/09/2025 10:36 AM EDT
--- OUTSIDE RECORDS SUMMARY | 2025-01-09 08:47 | XMS_ITS | Clinical Summary ---
Author Organization [facility] Address [address] [place] [address] Phone Care Team Providers Care Director Of First Impressions Name Role Phone Tessie Varela MD Primary Care Provider [phone]- [phone] Encounters Date Type Department Care Team Description 10/09/2024 Telephone Obstetrics & Gynecology - [facility] [address] [place] [phone] Ana Yoon CNM Vaginal Bleeding from Last 3 Months Surgical History Surgery Date Site/Laterality Comments OTHER SURGICAL HISTORY 11/29/2016 PROCEDURE: [place] DONOR NEPHRECTOMY OPEN LIVING DONOR; COMMENT: pt [...] drink = 0.6 oz pur e alcohol) Housing Instability Answer Date Recorde d Are you worried that in the next 2 months you may not have stable housing? No 01/05/2025 Food Access & Nutrition Answer Date Rec orded Do you have access to a vari ety of food including fruits and vegetables? Yes 01/05/2025 Access to Healthcare Answer Date Record ed Within the last 3 months, ho w many times did you visit the emergency department for your medical care? 0 01/05/2025 Health Literacy Answer Date Recorded How often do you need to hav e someone help you when you read instructions, pamphlets, or other written material from your doctor or pharmacy? Never 01/05/2025 Caregiver: How often do you need to have someone help you when you read instructions, pamphlets, or other written material from your doctor or pharmacy? Not on file 01/05/2025 Financial Risk Answer Date Recorded How hard is it for you to pa y for the very basics like food, housing, medical care, and air conditioning / heating? Not very hard 01/05/2025 Transportation Answer Date Recorded Has the lack of transportati on kept you from meetings, work, or from getting things needed for daily living? No Has the lack of transportati on kept you from medical appointments or from getting medications? No 01/05/2025 Social Isolation Answer Date Recorded How often do you feel lonely or isolated from th ose around you? Rarely 01/05/2025 Food Risk Answer Date Recorded Within the past 12 months we worried whether our food would run out before we got money to buy more. Never true 01/05/2025 Within the past 12 months th e food we bought just didn't last and we didn't have money to get more. Never true 01/05/2025 Dependent Care Answer Date Recorded Do you need help finding or paying for care for your loved ones. For example, child abuse worker or elderly care for an older adult? No 01/05/2025 Education Answer Date Recorded Do you think completing more education or training, like finishing a GED, going to college, or learning a trade, would be helpful for you? No 01/05/2025 Employment and Income Answer Date Recor ded During the last four weeks, have you been actively looking for work? No 01/05/2025 Living Situation Answer Date Recorded What is your living situation? 0 01/05/2025 Comments Unknown Sex and Gender Information Value [...] Care Team (Late st Contact Info) Description 01/12/2025 10:15 AM EDT Office Visit Obstetrics & Gynecology - [address] [phone] Krisetn Ludwig CNM [address] [place] [address] 02/10/2025 7:30 AM EDT [facility] [address] [phone] Health Maintenance Due Date Last Done Comments Hepatitis A Vaccines (1 of 2 - Risk 2-dose series) 1996 Hepatitis B Vaccines (1 of 3 - 19+ 3-dose series) 1996 Colorectal Cancer Screening: Colonoscopy 06/25/2022 HIV Screening 06/25/2022 Hepatitis C Screening 06/25/2022 COVID-19 Vaccine ( season) 2024 07/17/2021, 01/02/2021, 12/12/2020 Cervical Cancer Screening: Pap Smear 07/06/2024 07/06/2023, 03/04/2020 Influenza Vaccine (Season Ended) 2025 Depression Screening 01/05/2026 01/05/2025 Social Influencers of Health Screening 01/05/2026 01/05/2025 Breast Cancer Screening 01/20/2026 01/21/20 24, 01/18/2023, 01/16/2022, Additional history exists DTaP,Tdap,and Td [...] Procedure Name Priority Date/Time Associated Diagnosis Comments [facility] SCREENING DIGITAL Routine 01/21/2024 10:48 AM EDT Encounter for screening mammogram for malignant neoplasm of breast PAP SMEAR Routine 07/06/2023 from Last 3 Months or Most Recently Relevant to Health Maintenance Results * [facility] SCREENING DIGITAL (01/21/2024 10:48 AM EDT) Anatomical Region Laterality Modality Mammography 01/21/2024 7:39 AM EDT Narrative 01/21/2024 10:48 AM EDT [facility] Diagnostic Imaging Department [address] [place] [address] Patient: BONNER,GRACIEKHURRAM PiersonO.B./Age/Sex: 1975 - 48 - F Unit#: [id number] [facility]Ordering Site[facility] Ordering Physician: TESSIE VARELA MD [facility] Screening Digital - 01/21/24 - 08 Report Status:Signed EXAM: [facility] Screening Digital EXAM DATE AND TIME: 01/21/2024 8:01 AM HISTORY: Screening. COMPARISON: 01/18/23, 01/16/22, 01/15/21, 01/12/20, 01/13/19, 12/19/17 TECHNIQUE: Bilateral digital breast tomosynthesis was performed in the CC and MLO projections. Computer aided detection with [employer] 3D 3.1 was employed. TISSUE DENSITY: c. [...] No evidence of malignancy is seen. BI-RADS: Category 0: Incomplete - Need Additional Imaging Evaluation RECOMMENDATION(S): 1: Special mammographic view(s) needed RIGHT Dictating Physician: GINI VIRAMONTES MD Electronically Signed by: GINI VIRAMONTES MD Dic Date/Time: 01/21/24 0940 Sign date/Time: 01/21/24 1048 Procedure Note Gini Viramontes MD - 05/07/2024 [facility] Diagnostic Imaging Department [address] [place] [address] Patient: GRACIE BONNER /Age/Sex: 1975 - 48 - F Unit#: [id number] Location/Status: SPDIMAM/REG CLI Mnemonic/Ordering Site: [facility] Ordering Physician: TESSIE VARELA MD [facility] Screening Digital - 01/21/24 - 800 Report Status:Signed EXAM: [facility] Screening Digital EXAM DATE AND TIME: 01/21/2024 8:01 AM HISTORY: Screening. COMPARISON: 01/18/23, 01/16/22, 01/15/21, 01/12/20, 01/13/19, 12/19/17 TECHNIQUE: Bilateral digital breast tomosynthesis was performed in the CCand MLO projections. Computer aided detection with [employer] 3D 3.1was employed. TISSUE DENSITY: c. The [...] RESULTING AGENCY - 07/20/2023 10:51 AM EST [id number] THINPREP PAP, IMAGED: NEGATIVE FOR SQUAMOUS INTRAEPITHELIAL LESION AND MALIGNANCY . BRIAN MINOR(ASCP) (CASE ELECTRONICALLY SIGNED 07 20 2023) RESULT OF APTIMA HIGH RISK HPV ASSAY: HIGH RISK HPV: NEGATIVE (SEROTYPES 16,18,31,33,35,39,45,51,52,56,58,59,66,68) COMPLETED ON 2023-07-12 ADEQUACY: SATISFACTORY ENDOCERVICAL/TRANSFORMATION ZONE COMPONENT PRESENT. SOURCE: THINPREP PAP HPV ANY DX: REFLEX 16 AND 18, CERVICAL, IMAGED CLINICAL INFORMATION: HPV ANY DIAGNOSIS. HORMONES, PAP HX NEGATIVE, LMP 07/01/23, [Z01.419] us Ana [facility] LAB CYTOLOGY ORDERABLES Final Result HISTORICAL TESTING LAB RESULTING AGENCY from Last 3 Months or Most Recently Relevant to Health Maintenance Insurance [facility] [address] [place] [address] Care Teams Director Of First Impressions Relationship Specialty Start Date End Date Tessie Varela MD [address] [place] [address] PCP - General Internal Medicine 12/28/16
== END 2025-01-09 08:46 | disposition home or self-care (01) ==
LOC: HO.XRAY 08:45
PROVIDERS: PCP Internal Medicine; Visit Provider Internal Medicine
DX: R10.13 Epigastric pain (principal)
CPT/HCPCS: 74246

== ENCOUNTER → 2025-01-09 08:47 | Outpatient (BNV) | payer OTHER, SELFPAY | PROVIDERS: PCP Internal Medicine; Visit Provider Radiology Diagnostic Radiology | DX: K44.0 Diaphragmatic hernia with obstruction, without gangrene (principal); R10.13 Epigastric pain | CPT/HCPCS: 74246 ==

== ENCOUNTER 2025-01-27 08:03 | Outpatient (AMB) | payer OTHER, SELFPAY ==
[2025-01-27 08:05] VITALS: BP 110/72; PULSE 79; TEMP 36.8; O2SAT 99; BMI 27.3
--- NOTE | 2025-01-27 08:05 | AM.OFFWIN_ITS ---
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 - Worse with movement - She has a history of renal agenesis, l imiting her use of NSAIDs, and experiences trace hematuria, managed by nephrology, found to be dehydrated. Has no chronic kidney disease. - Has tried tylenol w/out relief, also s rigoberto pas patches - Denies any loss of control of her blad patric or bowels or urinary changes, has never smoked. Physical Exam General: cooperative, healthy appearing and comfortable, patient oriented x3 Head: Yes normal to inspection and Yes normocephalic General nose exam: Normal external nose present Face and sinus: Yes normal facial exam Effort & Inspection: normal respiratory effort and able to speak in complete sentences Back/spine: no CVA tenderness bilaterally cervical, thoracic and lumbar spine normal to inspection cervical ROM normal, thoracic ROM normal, lumbar ROM normal no Cervical, thoracic or lumbar spine tenderness no TTP on paraspinal muscles bilaterally PFSH Medical History Anxiety and depression Lumbago History of COVID-19 Hx of unilateral nephrectomy Hepatitis A Juvenile seizure disorder Surgical History History of nephrectomy, left Family History Father No problems noted. 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 [employer] Cognitive needs: No Hearing needs: No Vision needs: Yes Review of Systems Const All systems reviewed & are unremarkable except as noted in HPI and below Physical Exam Vital Signs: Last Vital Signs Temp 98.3 F 01/27/25 08:05 Pulse 79 01/27/25 08:05 BP 110/72 01/27/25 08:05 Pulse Ox 99 01/27/25 08:05 Oxygen Delivery Method Room Air 01/27/25 08:05 BMI result Body Mass Index 27.3 Assessment & Plan Assessment & Plan (1) Lumbago: Code(s): M54.50 - Low back pain, unspecified Qualifiers: Chronicity: acute Back pain laterality: bilateral Sciatica presence: without sciatica Qualified Code(s): M54.50 - Low back pain, unspecified Plan: Patient was informed and verbally consented to the use of an ambient scribe for clinic note documentation during this visit. Acute Low Back Pain - Prescribed a 5-day course of prednisone 20 mg daily to reduce inflammation. - Recommended topical diclofenac gel for local pain relief. - Prescribed cyclobenzaprine 5 mg as a muscle relaxant, to be taken at night. - Advised to avoid NSAIDs due to kidney history and to use Tylenol, ice or heat for pain management. (2) Hematuria: Code(s): R31.9 - Hematuria, unspecified Qualifiers: Hematuria type: asymptomatic microscopic Qualified Code(s): R31.21 - Asymptomatic microscopic hematuria Plan: Trace Hematuria - Advised to follow up with nephrology or PCP for ongoing management. - Recommended monitoring of urine for any changes or increase in symptoms. Medications: New cyclobenzaprine 5 mg PO Q8H PRN 20 tabs 0RF Muscle Spasm prednisone 20 mg PO QAM 5 tabs 0RF Coding Level of Care Code Est Pt Level 3 (16533) Diagnoses Acute bilateral low back pain without sciatica M54.50 Chronicity: acute Back pain laterality: bilateral Sciatica presence: without sciatica Asymptomatic microscopic hematuria R31.21 Hematuria type: asymptomatic microscopic
--- OUTSIDE RECORDS SUMMARY | 2025-01-27 08:06 | XMS_ITS | Clinical Summary ---
Author Organization [facility] Address [address] [place] [address] Phone Care Team Providers Care Tailor'S Aide Name Role Phone Tessie Varela MD Primary Care Provider [phone] Allergies No known active allergies Medications No known medications Active Problems No known active problems Encounters Date Type Department Care Team Description 01/12/2025 10:15 AM EDT Office Visit Obstetrics & Gynecology - [address] [address] Kristen Ludwig CNM Encounter for gynecological examination without abnormal finding (Primary Dx); Perimenopause; Overweight from Last 3 Months Surgical History Surgery Date Site/Laterality Comments OTHER SURGICAL HISTORY 11/29/2016 PROCEDURE: [place] DONOR NEPHRECTOMY OPEN LIVING DONOR; COMMENT: pt [...] for your loved ones. For example, child and adolescent psychologist or elderly care for an older adult? [...] is your living situation? 0 01/05/2025 Comments No Sex and Gender Information Value Date Recorded Sex Assigned at Female 07/25/2024 10:49 AM EST Legal Sex Female 3:16 AM EST Gender Identity Female 07/25/2024 10:49 AM EST Sexual Orientation Straight 07/25/2024 10 :49 AM EST Obstetrics History Para Term AB IAB SAB Ectopic Multiple Livin g Live Births 1 1 1 1 1 Date Outcome GA Total Labor Labor/2nd/3rd Weight Sex Type Anes PTL Nancy A1 A5 Name Clin 2006 Term F Vag-S pont None N Living Complications:None Last Filed Vital Signs Vital Sign Reading Time Taken Comments Blood Pressure 114/80 01/12/2025 9:55 AM EDT Pulse 76 01/12/2025 9:55 AM EDT Temperature - - Respiratory Rate 15 01/12/2025 9:55 AM EDT Oxygen Saturation - - Inhaled Oxygen Concentration - - Weight 63.5 kg (140 lb) 01/12/2025 9:55 AM EDT Height 152.4 cm (5') 01/12/2025 9:55 AM EDT Body Mass Index 27.34 01/12/2025 9:55 AM EDT Plan of Treatment Upcoming Encounters Date Type Department Care Team (Late st Contact Info) Description 02/10/2025 7:30 AM EDT [facility]ment [facility] at [address] [phone] Health Maintenance Due Date Last Done Comments Hepatitis A Vaccines (1 of 2 - Risk 2-dose series) 1996 Hepatitis B Vaccines (1 of 3 - 19+ 3-dose series) 1996 Colorectal Cancer Screening: Colonoscopy 06/25/2022 HIV Screening 06/25/2022 Hepatitis C Screening 06/25/2022 COVID-19 Vaccine ( season) 2024 07/17/2021, 01/02/2021, 12/12/2020 Cervical Cancer Screening: Pap Smear 07/06/2024 07/06/2023, 03/04/2020 Influenza Vaccine (#1) 2025 Depression Screening 01/05/2026 01/05/2025 Social Influencers [...] 5 Years) and At-Risk Patients (6 to 49 Years) Aged Out No longer eligible based on patient's age to complete this topic RSV Immunization Patients Under 20 months Aged Out No longer eligible based on patient's age to complete this topic Varicella Vaccines Aged Out No longer eligible based on patient's age to complete this topic Procedures Procedure Name Priority Date/Time Associated Diagnosis Comments [facility] SCREENING DIGITAL Routine 01/21/2024 10:48 AM EDT Encounter for screening mammogram for malignant neoplasm of breast PAP SMEAR Routine 07/06/2023 from Last 3 Months or Most Recently Relevant to Health Maintenance Results * [facility] SCREENING DIGITAL (01/21/2024 10:48 AM EDT) Anatomical Region Laterality Modality Mammography 01/21/2024 7:39 AM EDT Narrative 01/21/2024 10:48 AM EDT [facility] Diagnostic Imaging Department [address] [place] [address] Patient: GRACIE BONNER/Age/Sex: 1975 - 48 - F Unit#: [id number] Location/Status: SPDIMAM/REG CLI Mnemonic/Ordering Site: [facility] Ordering Physician: TESSIE VARELA MD [facility] Screening Digital - 01/21/24 - 0801 Report Status:Signed EXAM: [facility] Screening Digital EXAM DATE AND TIME: 01/21/2024 8:01 AM HISTORY: Screening. COMPARISON: 01/18/23, 01/16/22, 01/15/21, 01/12/20, 01/13/19, 12/19/17 TECHNIQUE: Bilateral digital breast tomosynthesis was performed in the CC and MLO projections. Computer aided detection with [employer] 3D 3.1 was employed. TISSUE DENSITY: c. [...] Procedure Note Gini Viramontes MD - 05/07/2024 [facility] Diagnostic Imaging Department [address] [place] [id number] Patient: GRACIE BONNER [place] /Age/Sex: 1975 - 48 - F Unit#: [id number] Location/Status: SPDIMAM/REG CLI Mnemonic/Ordering Site: [facility] Ordering Physician: TESSIE VARELA MD [facility] Screening Digital - 01/21/[address] Report Status:Signed EXAM: [facility] Screening Digital EXAM DATE AND TIME: 01/21/2024 8:01 AM HISTORY: Screening. COMPARISON: 01/18/23, 01/16/22, 01/15/21, 01/12/20, 01/13/19, 12/19/17 TECHNIQUE: Bilateral digital breast tomosynthesis was performed in the CCand MLO projections. Computer aided detection with [employer] 3D 3.1was employed. TISSUE DENSITY: c. The [...] RESULTING AGENCY - 07/20/2023 10:51 AM EST [id number] THINPREP PAP, IMAGED: NEGATIVE FOR SQUAMOUS INTRAEPITHELIAL [...] PAP HX NEGATIVE, LMP 07/01/23, [Z01.419] us Aan Yoon CNM LAB CYTOLOGY ORDERABLES Final Result HISTORICAL TESTING LAB RESULTING AGENCY from Last 3 Months or Most Recently Relevant to Health Maintenance Insurance [facility] Care Teams Tailor'S Aide Relationship Specialty Start Date End Date Tessie Varela MD [address] [place] [address] PCP - General Internal Medicine 12/28/16
== END 2025-01-27 08:43 | disposition home or self-care (01) ==
PROVIDERS: PCP Internal Medicine; Visit Provider Physician Assistant
DX: M54.50 Low back pain, unspecified (principal); R31.21 Asymptomatic microscopic hematuria; Z13.9 Encounter for screening, unspecified

== ENCOUNTER → 2025-01-27 08:03 | Outpatient (BNVA) | payer OTHER, SELFPAY | PROVIDERS: PCP Internal Medicine; Visit Provider Physician Assistant | DX: M54.50 Low back pain, unspecified (principal); R31.21 Asymptomatic microscopic hematuria | CPT/HCPCS: 81003 ==

== ENCOUNTER 2025-01-30 07:23 | Outpatient (REF) | payer OTHER, SELFPAY ==
--- OUTSIDE RECORDS SUMMARY | 2025-01-30 07:25 | XMS_ITS | Clinical Summary ---
Author Organization [facility] Address [address] [place] [address] Phone Care Team Providers Care Rehab Therapy Manager Name Role Phone Tessie Varela MD Primary Care Provider [phone]- [phone] Allergies No known active allergies Medications No known medications Active Problems No known active problems Encounters Date Type Department Care Team Description 01/12/2025 10:15 AM EDT Office Visit Obstetrics & Gynecology - [address] [address] Kristen Ludwig CNM Encounter for gynecological examination without abnormal finding (Primary Dx); Perimenopause; Overweight from Last 3 Months Surgical History Surgery Date Site/Laterality Comments OTHER SURGICAL HISTORY 11/29/2016 PROCEDURE: [place] DONOR NEPHRECTOMY OPEN LIVING DONOR; COMMENT: pt [...] care for your loved ones. For example, children counselor or elderly care for an older adult? [...] AM EDT [facility]ment [facility] at [address] [address] Health Maintenance Due Date Last [...] Procedure Name Priority Date/Time Associated Diagnosis Comments [facility] SCREENING DIGITAL Routine 01/21/2024 10:48 AM EDT Encounter for screening mammogram for malignant neoplasm of breast PAP SMEAR Routine 07/06/2023 from Last 3 Months or Most Recently Relevant to Health Maintenance Results * [facility] SCREENING DIGITAL (01/21/2024 10:48 AM EDT) Anatomical Region Laterality Modality Mammography 01/21/2024 7:39 AM EDT Narrative 01/21/2024 10:[address] [facility] Diagnostic Imaging Department [address] [place] [address] Patient: GRACIE BONNER/Age/Sex: 1975 - 48 - F Unit#: [id number] Location/Status: SPDIMAM/REG CLI Mnemonic/Ordering Site: [facility] Ordering Physician: TESSIE VARELA MD [facility] Screening Digital - 01/21/24 - 0801 Report Status:Signed EXAM: [facility] Screening Digital EXAM DATE AND TIME: 01/21/2024 8:01 AM HISTORY: Screening. COMPARISON: 01/18/23, 01/16/22, 01/15/21, 01/12/20, 01/13/19, 12/19/17 TECHNIQUE: Bilateral digital breast tomosynthesis was performed in the CC and MLO projections. Computer aided detection with [employer] 3D 3.1 was employed. TISSUE DENSITY: c. [...] Note Gini Viramontes MD - 05/07/2024 [facility] Diagnostic Imaging Department [address] [place] [address] Patient: GRACIE BONNER [place] /Age/Sex: 1975 - 48 - F Unit#: [id number] Location/Status: SPDIMAM/REG CLI Mnemonic/Ordering Site: [facility] Ordering Physician: TESSIE VARELA MD [facility] Screening Digital - 01/21/24[address] Report Status:Signed EXAM: [facility] Screening Digital EXAM DATE AND TIME: 01/21/2024 8:01 AM HISTORY: Screening. COMPARISON: 01/18/23, 01/16/22, 01/15/21, 01/12/20, 01/13/19, 12/19/17 TECHNIQUE: Bilateral digital breast tomosynthesis was performed in the CCand MLO projections. Computer aided detection with [employer] 3D 3.1was employed. TISSUE DENSITY: c. The [...] RESULTING AGENCY - 07/20/2023 10:51 AM EST [id number] THINPREP PAP, IMAGED: NEGATIVE FOR SQUAMOUS INTRAEPITHELIAL [...] HX NEGATIVE, LMP 07/01/23, [Z01.419] us Ana Yoon CNM LAB CYTOLOGY ORDERABLES Final Result HISTORICAL TESTING LAB RESULTING AGENCY from Last 3 Months or Most Recently Relevant to Health Maintenance Insurance [facility] Care Teams Rehab Therapy Manager Relationship Specialty Start Date End Date Tessie Varela MD [address] [place] [address] PCP - General Internal Medicine 12/28/16
[2025-01-30 08:29] LABS: Appearance Urine Clear; Glucose Urine UA Negative (Negative); PH 6.5 (5.0-9.0); Specific Gravity - Urine 1.020 (1.005-1.025); UMIC TRIGGER UA YES
== END 2025-01-30 07:24 | disposition home or self-care (01) ==
LOC: HO.LAB 07:23
PROVIDERS: PCP Internal Medicine; Visit Provider Internal Medicine Nephrology
DX: R31.21 Asymptomatic microscopic hematuria (principal); N17.9 Acute kidney failure, unspecified
CPT/HCPCS: 81001; 87086

== ENCOUNTER 2025-03-12 10:47 | Outpatient (AMB) | payer OTHER, SELFPAY ==
[2025-03-12 11:00] VITALS: BP 102/70; PULSE 73; RESP 16; TEMP 36.9; O2SAT 100; BMI 27.5
--- NOTE | 2025-03-12 11:00 | A.OFFPC_ITS ---
Vital Signs 03/12/25 11:00 Height 5 ft Weight 141 lb BMI 27.5 BP 102/70 Blood Pressure Location Rt brachial Position Sitting Respiration 16 Pulse 73 Pulse Source Pulse Oximeter Temp 98.4 F Temp Source Oral Pulse Oximetry (%) 100 Oxygen Delivery Method Room Air Intake Visit Reasons: PE Intake Note: Pt is here today for her PE: last mammogram 01/25/24, colonoscopy 07/05/22: pt has updated mammo and papsmear will get report from [facility] Is last menstrual period known: Yes Last menstrual period: 02/03/25 Allergies No Known Drug Allergies Allergy (Verified 03/12/25 11:22) Unknown Medication List - Last Reconciled 03/12/25 by Tessie Cerrato MD No Known Home Meds Tobacco use date assessed: 03/12/25 Dental Screening Dental Screen Date: 03/12/25 Did you have a dental visit in the last 12 months?: No Did you have a dental problem in the last 6 months where you did not have access to dental care?: No Was dental information given to patient?: Patient has dentist HPI PE HPI Details 49-year-old lady here today for her phys ical exam. - Hiatal hernia: Diagnosed with a small sliding hiatal hernia causing occasional acid reflux and sensation of food being stuck. Identified during an upper GI series. Patient denies spicy food intake but eats quickly. Has adjusted her eating habits does not take any medications for this - Hepatitis B non-immunity: Lacks immuni ty to hepatitis B as per serology. History of hepatitis A in childhood. May require hepatitis B vaccination. - Anxiety: Experiences anxiety related t o 's health issues. Engages in therapy and spiritual practices for coping. - complaining of an itchy rash under bot h breasts which usually occurs during h ot weather. Previously used antifungal and low-dose steroid creams with relief, requests a refill. - History of vitamin D deficiency with inconsistent supplementation. Often forgets to take vitamin D pills. - Solitary kidney: Has a solitary kidney with the left kidney removed. No pain or history of kidney stones reported. Has been making a conscious effort to stay well-hydrated - Fibrocystic breast disease: Undergoes regular mammograms and ultrasounds due to dense breast tissue. Goes to [facility], where she also sees her OBGYN for her routine Pap and pelvic exam, copy of report requested -had a Cologuard in 07/05/22 with negati ve findings, due for a repeat colon cancer screening: [facility] Medical History (Updated 03/14/25 @ 08:01 by Tessie Cerrato MD) Sliding hiatal hernia Anxiety and depression Lumbago History of COVID-19 Hx of unilateral nephrectomy Hepatitis A Juvenile seizure disorder Surgical History History of nephrectomy, left Family History Father No problems noted. 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 1. Little interest or pleasure in doing things: not at all 2. Feeling down, depressed, or hopeless: not at all 3. Trouble falling or staying asleep, or sleeping too much: not at all 4. Feeling tired or having little energy: not at all 5. Poor appetite or overeating: not at all 6. Feeling bad about yourself - or that you are a failure or have let yourself or your family down: not at all 7. Trouble concentrating on things, such as reading the newspaper or watching television: not at all 8. Moving or speaking so slowly that other people could have noticed. Or the opposite - being so fidgety or restless that you have been moving around a lot more than usual: not at all 9. Thoughts that you would be better off or of hurting yourself in some way: not at all Total score: 0 Depression Screening Interpretation: Negative Depression Screening Done: Yes 44833 - PHQ-9 Billing: Yes Source: Developed by Drs. Eber Werner, Dee Jaimes, Elder Payne and colleagues, with an educational emily from [employer]. Thrive Questionnaire Date Thrive assessed: 03/12/25 I am a: Patient What is your living situation today?: I have a steady place to live Within the past 12 months, did the food you bought not last and you didn't have the money to get more?: I choose not to answer this question Within the past 12 months, did you worry whether your food would run out before you got money to buy more?: I choose not to answer this question Do you have trouble paying for medicines?: I choose not to answer this question Do you have trouble getting transportation to medical appointments?: I choose not to answer this question Do you have trouble paying your heating and electricity bill?: I choose not to answer this question Do you have trouble taking care of your child, family member or friend?: I choose not to answer this question Do you have trouble with day-to-day activities such as bathing, preparing meals, shopping, managing finances, etc.?: I choose not to answer this question Are you currently unemployed and looking for a job?: I choose not to answer this question Are you interested in more education?: I choose not to answer this question Please select the resources that you would like help with: None Currently or been in a relationship where the following occur: I choose not to answer THRIVE Score: 0 AUDIT C Alcohol Use Questionnaire (AUDIT-C) 1. How often do you have a drink containing alcohol?: Never Total Score: 0 Score Reviewed/Action Taken: Yes AFRICA-7 AMB Questionnaire AFRICA-7 Date AFRICA - 7 assessed: 03/12/25 Feeling nervous, anxious, or on edge: 0 = Not at all Not being able to stop or control worryin = Not at all Worrying too much about different things: 0 = Not at all Trouble relaxin = Not at all Being so restless that it is hard to sit still: 0 = Not at all Becoming easily annoyed or irritable: 0 = Not at all Feeling afraid as if something awful might happen: 0 = Not at all Total AFRICA-7 score (0-4 normal; 5-9 mild; 10-14 moderate; 15-21 severe): 0 Source: Developed by Drs. Eber Werner, Dee Jaimes, Elder Payne and colleagues, with an educational emily from [employer]. AFRICA-7 Assessment Billing AFRICA-7 Assessment Tool: AFRICA-7 Assessment 85833 Review of Systems Const Denies fever(s), Denies lethargy and Denies poor appetite Eyes Details: Sees [facility]- Ophthalmology Reports requires corrective lenses (Mainly for driving) ENT Reports no additional complaints Card Denies chest pain, Denies irregular heart rhythm, Denies leg edema, Denies lightheadedness and Denies dyspnea Resp Denies cough and Denies dyspnea GI Reports as per HPI, Denies abdominal pain, Denies melena, Denies hematochezia, Denies change in bowel habits, Denies heartburn and Denies nausea Details: Sees OBGYN at [facility] Reports no additional complaints Musc Denies arthralgias and Denies muscle weakness Skin/Breast Reports as per HPI, Denies breast swelling, Denies breast pain and Denies breast mass Neuro Reports no additional complaints Psych Reports no additional complaints Endo Reports no additional complaints Tima/Lymph Reports no additional complaints Aller/Immun Reports no additional complaints Physical exam (Primary Care) Vital Signs: Last Vital Signs Temp 98.4 F 03/12/25 11:00 Pulse 73 03/12/25 11:00 Resp 16 03/12/25 11:00 BP 102/70 03/12/25 11:00 Pulse Ox 100 03/12/25 11:00 Oxygen Delivery Method Room Air 03/12/25 11:00 BMI result Body Mass Index 27.5 Tobacco/Smoking Status: Tobacco use Status Tobacco use date assessed 03/12/25 03/12/25 11:09 Patient Tobacco Use Status Never used Tobacco 03/12/25 11:01 e-Cigarette/Vaping Use Never Used 03/12/25 11:01 PHQ-9: PHQ-9 Score PHQ-9: Total score 0 03/13/25 15:17 Depression Screening Interpretation: Negative Thrive Assessment: Date of Thrive Assessment Date Thrive assessed 03/12/25 03/12/25 11:09 Currently or been in a relationship where the following occur: I choose not to answer Const General: no acute distress Nutritional Appearance: average body habitus Orientation/consciousness: patient oriented x3 HENMT Head: Yes normocephalic Ears: external ears normal General nose exam: Normal external nose present Face and sinus: Yes face symmetric Mouth: Normal oral and palatal mucosa present and moist mucous membranes Eyes General: appearance normal, both eyes and all related structures Neck Neck: Yes full ROM, Yes no lymphadenopathy and Yes supple Chest Breast/axilla palpation: normal palpation of the breasts Resp Effort & Inspection: normal respiratory effort and able to speak in complete sentences Auscultation: clear to auscultation bilaterally Cardio Rate: regular rate Rhythm: regular rhythm Heart sounds: S1 normal heart sound present and S2 normal heart sound present GI Inspection: Yes normal to inspection Palpation (GI): Soft to palpation, nontender, no guarding and no masses Auscultation: normal bowel sounds General: Yes no CVA tenderness and Yes deferred (Sees OBGYN in [place]) Back/Spine/Pelvis Back: no CVA tenderness and No back tenderness Skin Other: Faint erythematous patch under both breasts Neuro General: patient oriented x3, gait normal, tone normal, moves all extremities, Normal light touch and pain sensation and no focal motor deficits Gait exam (Neuro): Normal gait present Extrem General: Yes full ROM, Yes no joint enlargement, Yes no clubbing, cyanosis or edema, Yes no pedal edema, Yes no calf tenderness and Yes normal gait Psych Appearance: grossly normal and well kempt Mental Status: mental status grossly normal Speech and movement: Normal speech and movement present Affect: normal affect Coding Level of Care Code Est Pt Prev Care 40-64y(62317) Diagnoses Annual visit for general adult medical examination with abnormal findings Z00.01 Hx of unilateral nephrectomy Z90.5 Anxiety and depression F41.9; F32.A Solitary kidney, acquired Z90.5 Encounter for screening for malignant neoplasm of colon Z12.11 Sliding hiatal hernia K44.9 Additional Codes AFRICA-7 Assessment Billing - AFRICA-7 Assessment Tool: AFRICA-7 Assessment 99773 ([id number]) PHQ-9 - 24518 - PHQ-9 Billing: Yes ([id number]) Assessment & Plan Assessment & Plan (1) Annual visit for general adult medical examination with abnormal findings: Code(s): Z00.01 - Encounter for general adult medical examination with abnormal findings Category: Medical Plan: Fasting labs ordered. Continue regular dental visit every 6 months and regular eye exams, at least every 2 years. Take adequate calcium in diet and vitamin-D 3 at 2000 IU per cap once a day, in addition to weight-bearing exercises to help maintain good muscle tone and weight control. Instructed to do self-breast exam, up-to-date with yearly mammogram, done together with breast ultrasound due to dense breast tissue, goes to [facility]. She also sees her OBGYN at [facility] routine Pap and pelvic exam, copy of latest Pap results and mammogram and ultrasound requested has had COVID vaccine in the past as well to get any further vaccination, declines flu shot, up-to-date with Tdap (2) Hx of unilateral nephrectomy: Comment: Donated her left kidney to spouse Code(s): Z90.5 - Acquired absence of kidney Category: Medical Plan: Followed by Nephrology, sees Dr. Camara advised to avoid NSAIDs, stay well- hydrated (3) Anxiety and depression: Code(s): F41.9 - Anxiety disorder, unspecified; F32.A - Depression, unspecified Category: Medical Plan: Controlled with behavioral techniques not on any medication at present time (4) Solitary kidney, acquired: Code(s): Z90.5 - Acquired absence of kidney Category: Medical Plan: Advised to stay. Avoid nephrotoxins especially NSAIDs (5) Encounter for screening for malignant neoplasm of colon: Code(s): Z12.11 - Encounter for screening for malignant neoplasm of colon Plan: Referred to GI for her colonoscopy screening (6) Sliding hiatal hernia: Code(s): K44.9 - Diaphragmatic hernia without obstruction or gangrene Category: Medical Plan: * Avoiding foods that trigger symptoms (like fatty, acidic, or spicy foods, caffeine, and alcohol) can help.? * Meal Timing:?Eating smaller meals and avoiding eating close to bedtime can reduce nighttime reflux.? * Weight Management:?Maintaining a healthy weight can reduce pressure on the abdomen.? * Elevated Sleeping Position:?Sleeping with the head of the bed elevated can help Orders: Orders Comprehensive Miller. Panel Fast 03/12/25 F32.A - Depression, unspecified, F41.9 - Anxiety disorder, unspecified, Z13.1 - Encounter for screening for diabetes mellitus, Z13.220 - Encounter for screening for lipoid disorders, Z90.5 - Acquired absence of kidney Lipid Panel 03/12/25 F32.A - Depression, unspecified, F41.9 - Anxiety disorder, unspecified, Z13.1 - Encounter for screening for diabetes mellitus, Z13.220 - Encounter for screening for lipoid disorders, Z90.5 - Acquired absence of kidney Hepatitis B,C Profile 03/12/25 Z11.59 - Encounter for screening for other viral diseases Vitamin D 25-OH Total 03/12/25 F32.A - Depression, unspecified, F41.9 - Anxiety disorder, unspecified, Z13.1 - Encounter for screening for diabetes mellitus, Z13.220 - Encounter for screening for lipoid disorders, Z90.5 - Acquired absence of kidney Referrals Gastroenterology Referral Z12.11 - Encounter for screening for malignant neoplasm of colon Medications: Changed From clotrimazole-betamethasone 1-0.05 % topical BID To clotrimazole-betamethasone 1-0.05 % 1 appl topical BID PRN 45 grams 0RF inte rtrigo 10 days
--- OUTSIDE RECORDS SUMMARY | 2025-03-12 12:20 | XMS_ITS | Clinical Summary ---
Author Organization [facility] Address [address] [place] [phone] Phone Care Team Providers Care Bucket Turner Name Role Phone Tessie Cerrato MD Primary Care Provider Allergies No known active allergies Medications No known medications Active Problems No known active problems Encounters Date Type Department Care Team Description 02/10/2025 7:59 AM EDT - 02/10/2025 11:59 PM EDT Hospital Encounter [facility] Ultrasound [address] [place] [phone] BI-RADS category 3 mammogram result Discharge Disposition: Home or Self Care 02/10/2025 7:15 AM EDT - 02/10/2025 11:59 PM EDT [facility] [address] [phone] BI-RADS category 3 mammogram result Discharge Disposition: Home or Self Care 01/12/2025 10:15 AM EDT Office Visit Obstetrics & Gynecology - [address] [phone] Kristen Ludwig CNM Encounter for gynecological examination without abnormal finding (Primary Dx); Perimenopause; Overweight from Last 3 Months Surgical History Surgery Date Site/Laterality Comments OTHER SURGICAL HISTORY 11/29/2016 PROCEDURE: [place] DONOR NEPHRECTOMY OPEN LIVING DONOR; COMMENT: pt [...] care for your loved ones. For example, rn maternal child or elderly care for an older adult? [...] Care Team (Late st Contact Info) Description 05/12/2025 1:00 PM EDT Appointment [facility] Ultrasound [address] [place] [phone] 02/12/2026 8:00 AM EDT [facility]ointment [facility] [address] [place] [address] Health Maintenance Due Date Last Done Comments Hepatitis A Vaccines (1 of 2 - Risk 2-dose series) 1996 Hepatitis B Vaccines (1 of 3 - 19+ 3-dose series) 1996 Colorectal Cancer Screening: Colonoscopy 06/25/2022 HIV Screening 06/25/2022 Hepatitis C Screening 06/25/2022 COVID-19 Vaccine ( season) 2024 07/17/2021, 01/02/2021, 12/12/2020 Cervical Cancer Screening: Pap Smear 07/06/2024 07/06/2023, 03/04/2020 Influenza Vaccine (#1) 2025 Social Influencers of Health Screening 01/05/2026 01/05/2025 Breast Cancer Screening 02/10/2027 02/11/20, 01/21/2024, 01/18/2023, Additional history exists DTaP,Tdap,and Td Vaccines (3 - Td or Tdap) 05/29/2030 05/29/2020, 03/15/2018 Depression Screening Completed 01/05/2025 HIB Vaccines Aged Out No longer eligi [...] Procedure Name Priority Date/Time Associated Diagnosis Comments MG MAMMO DIGITAL DIAGNOSTIC W TETO BILAT Routine 02/10/2025 9:20 AM EDT BI-RADS category 3 mammogram result US BREAST LIMITED RIGHT Routine 02/10/2025 8:38 AM EDT BI-RADS category 3 mammogram result PAP SMEAR Routine 07/06/2023 from Last 3 Months or Most Recently Relevant to Health Maintenance Results * MG Mammo Digital Diagnostic w Teto bilat (02/10/2025 9:20 AM EDT) Anatomical Region Laterality Modality Breast Bilateral Mammography 02/10/2025 7:45 AM EDT Impressions 02/10/2025 9:41 AM EDT Resolution of previously noted nodule. Return to routine screening is recommended. BI-RADS CATEGORY: Mammography: 1 - NEGATIVE Ultrasound: 1 - NEGATIVE RECOMMENDATIONS: Screening bilateral mammogram is recommended in 1 year. Mammo Location: [facility], [address] [place] [address], [phone], . -------- FINAL REPORT -------- Dictated By: Diana Mckinney Dictated Date: 02/10/2025 07:45 ET Assigned Physician: Diana Mckinney Reviewed and Electronically Signed By: Diana Mckinney Signed Date: 02/10/2025 09:41 ET Workstation ID: [id number] Transcribed By: Self Edit Transcribed Date: 02/10/2025 08:41 ET Narrative 02/10/2025 9:41 AM EDT CLINICAL: 49 years old, Female, six-month follow-up right breast nodule. COMPARISON: 07/28/2024, 01/25/2024, 01/21/2024, 01/18/2023, 01/16/2022, 09/23/2021, 01/18/2021 FINDINGS: MAMMOGRAPHY TECHNIQUE: Bilateral MLO and CC views were obtained digitally with 3-D mammogram (digital breast tomosynthesis). Computer-aided detection was utilized in evaluation of this exam (CAD). Previously described low-density circumscribed nodule in the superior right breast is not seen on today's study. There is no evidence of suspicious mass or architectural distortion. No worrisome calcifications are evident. There has been no significant change from prior exam(s). BREAST DENSITY: B - There are scattered areas of fibroglandular density. ULTRASOUND TECHNIQUE: Targeted ultrasound evaluation of the right breast was performed. Previously noted right breast nodule is not visualized and may have represented a benign fat lobule. Normal fibroglandular tissue. No suspicious mass or fluid collection. Procedure Note Diana Mckinney MD - 02/10/2025 CLINICAL: 49 years old, Female, six-month follow-up right breast nodule. COMPARISON: 07/28/2024, 01/25/2024, 01/21/2024, 01/18/2023, 01/16/2022,09/23/2021, 01/18/2021 FINDINGS: MAMMOGRAPHY TECHNIQUE: Bilateral MLO and CC views were obtained digitally with 3-Dmammogram (digital breast tomosynthesis). Computer-aided detection wasutilized in evaluation of this exam (CAD). Previously described low-density circumscribed nodule in the superiorright breast is not seen on today's study. There is no evidence ofsuspicious mass or architectural distortion. No worrisome calcificationsare evident. There has been no significant change from prior exam(s). BREAST DENSITY: B - There are scattered areas of fibroglandular density. ULTRASOUND TECHNIQUE: Targeted ultrasound evaluation of the right breast wasperformed. Previously noted right breast nodule is not visualized and may haverepresented a benign fat lobule. Normal fibroglandular tissue. Nosuspicious mass or fluid collection. IMPRESSION: Resolution of previously noted nodule. Return to routine screening isrecommended. BI-RADS CATEGORY: Mammography: 1 - NEGATIVE Ultrasound: 1 - NEGATIVE RECOMMENDATIONS: Screening bilateral mammogram is recommended in 1 year. Mammo Location: [facility], [address] [place] [address], [id number], . -------- FINAL REPORT -------- Dictated By: Diana Mckinney Dictated Date: 02/10/2025 07:45 ET Assigned Physician: Diana Mckinney Reviewed and Electronically Signed By: Diana Mckinney Signed Date: 02/10/2025 09:41 ET Workstation ID: [id number] Transcribed By: Self Edit Transcribed Date: 02/10/2025 08:41 ET us Tessie Cerrato MD IMG BI PROCEDURES Final Res ult * US Breast Limited Right (02/10/2025 8:38 AM EDT) Anatomical Region Laterality Modality Breast Right Ultrasound Impressions 02/10/2025 9:41 AM EDT Resolution of previously noted nodule. Return to routine screening is recommended. BI-RADS CATEGORY: Mammography: 1 - NEGATIVE Ultrasound: 1 - NEGATIVE RECOMMENDATIONS: Screening bilateral mammogram is recommended in 1 year. Mammo Location: [facility], [address] [place] [address], [phone], . -------- FINAL REPORT -------- Dictated By: Diana Mckinney Dictated Date: 02/10/2025 07:45 ET Assigned Physician: Diana Mckinney Reviewed and Electronically Signed By: Diana Mckinney Signed Date: 02/10/2025 09:41 ET Workstation ID: [id number] Transcribed By: Self Edit Transcribed Date: 02/10/2025 08:41 ET Narrative 02/10/2025 9:41 AM EDT CLINICAL: 49 years old, Female, six-month follow-up right breast nodule. COMPARISON: 07/28/2024, 01/25/2024, 01/21/2024, 01/18/2023, 01/16/2022, 09/23/2021, 01/18/2021 FINDINGS: MAMMOGRAPHY TECHNIQUE: Bilateral MLO and CC views were obtained digitally with 3-D mammogram (digital breast tomosynthesis). Computer-aided detection was utilized in evaluation of this exam (CAD). Previously described low-density circumscribed nodule in the superior right breast is not seen on today's study. There is no evidence of suspicious mass or architectural distortion. No worrisome calcifications are evident. There has been no significant change from prior exam(s). BREAST DENSITY: B - There are scattered areas of fibroglandular density. ULTRASOUND TECHNIQUE: Targeted ultrasound evaluation of the right breast was performed. Previously noted right breast nodule is not visualized and may have represented a benign fat lobule. Normal fibroglandular tissue. No suspicious mass or fluid collection. us Tessie Cerrato MD IMG US PROCEDURES Edited Re sult - Final * Pap smear (07/06/2023) 07/06/2023 Narrative HISTORICAL TESTING LAB RESULTING AGENCY - 07/20/2023 10:51 AM EST [id number] THINPREP PAP, IMAGED: NEGATIVE FOR SQUAMOUS INTRAEPITHELIAL [...] HORMONES, PAP HX NEGATIVE, LMP 07/01/23, [Z01.419] Ana Yoon [facility] LAB CYTOLOGY ORDERABLES Final Result HISTORICAL TESTING LAB RESULTING AGENCY from Last 3 Months or Most Recently Relevant to Health Maintenance Insurance [facility] [id number] Care Teams Bucket Turner Relationship Specialty Start Date End Date Tessie Cerrato MD [address] [address] PCP - General Internal Medicine 12/28/16
== END 2025-03-12 16:42 | disposition home or self-care (01) ==
PROVIDERS: PCP Internal Medicine; Visit Provider Internal Medicine
DX: Z00.01 Encounter for general adult medical examination with abnormal findings (principal); Z90.5 Acquired absence of kidney; F41.9 Anxiety disorder, unspecified; F32.A Depression, unspecified; Z12.11 Encounter for screening for malignant neoplasm of colon; K44.9 Diaphragmatic hernia without obstruction or gangrene

== ENCOUNTER 2025-03-12 10:47 | Outpatient (REF) | payer OTHER, SELFPAY ==
[2025-03-12 13:40] LABS: Alanine Aminotransferase 11 U/L (0-31); Albumin Level 4.3 g/dL (3.5-5.0); Alkaline Phosphatase 67 U/L (39-117); Anion Gap 11 (12-20); Aspartate Amino Transferase 24 U/L (5-31); Blood Urea Nitrogen 10 mg/dL (9-16); Calcium 9.0 mg/dL (8.4-10.2); Carbon Dioxide 24 mmol/L (22-29); Chloride 106 mmol/L (96-108); Cholesterol 157 mg/dL (<200); Estimated Glomerular Filt Rate > 60; HDL Cholesterol 50 mg/dL (>40); Potassium 4.1 mmol/L (3.3-5.1); Sodium 137 mmol/L (135-145); Total Protein 7.2 g/dL (6.5-8.0); Triglycerides 68 mg/dL (<150)
[2025-03-13 08:14] LABS: HBS Num1 4.48 mIU/mL (0-7.99); HBc Num1 12.39 S/CO (0.00-0.79); HBsAGNum1 0.38 S/CO (0.00-0.99); Hepatitis B Surface Antigen Negative (Negative); ~HepC Num1 0.10 S/CO (0.00-0.79); ~Hepatitis B Surface Antibody NONREACTIVE (Nonreactive); ~Hepatitis C Antibody Nonreactive (Nonreactive)
[2025-03-13 11:09] LABS: HBc Num2 12.03 S/CO; HBc Num3 12.67 S/CO
[2025-03-14 09:14] LABS: Hepatitis B Core Antibody IgM NON-REACTIVE (NON-REACTIVE)
== END 2025-03-12 10:48 | disposition home or self-care (01) ==
LOC: HO.HMGCLDS 10:47
PROVIDERS: PCP Internal Medicine; Visit Provider Internal Medicine
DX: Z00.01 Encounter for general adult medical examination with abnormal findings (principal); Z12.11 Encounter for screening for malignant neoplasm of colon; Z13.220 Encounter for screening for lipoid disorders; Z13.1 Encounter for screening for diabetes mellitus; Z11.59 Encounter for screening for other viral diseases; F41.9 Anxiety disorder, unspecified; F32.A Depression, unspecified; K44.9 Diaphragmatic hernia without obstruction or gangrene; Z90.5 Acquired absence of kidney
CPT/HCPCS: 36415; 80053; 80061; 82306; 86704; 86705; 86706; 86803; 87340; 96127

== ENCOUNTER 2025-06-17 08:01 | Outpatient (AMB) | payer OTHER, SELFPAY ==
--- NOTE | 2025-06-17 08:01 | A.OFFPC_ITS ---
Intake Visit Reasons: new med for anxiety, Buspirone Intake Note: Pt is having a telehealth visit for anxiety and found a old bottle of buspirone 5mg TID which she started taking already for 2weeks It Administrator Required: No Allergies No Known Drug Allergies Allergy (Verified 03/12/25 11:22) Unknown Medication List - Last Reconciled 06/17/25 by Tessie Cerrato MD buspirone 5 mg PO BID 3 months Tobacco use date assessed: 06/17/25 Dental Screening Dental Screen Date: 06/17/25 Did you have a dental visit in the last 12 months?: Yes Did you have a dental problem in the last 6 months where you did not have access to dental care?: No Was dental information given to patient?: Patient has dentist HPI new med for anxiety, Buspirone HPI Details 49 Lady with history of anxiety disorder , here today complaining of increasing anxiety attacks. Was on buspirone 5 mg which he took twice a day which was helping but stopped taking the medicine approximately 6 months ago, would like to go back on it. Denies any accompanying side effects except for an occasional lightheadedness which only last for several sec and resolved spontaneously. [facility] Medical History (Updated 06/17/25 @ 08:25 by Tessie Cerrato MD) Generalized anxiety disorder Sliding hiatal hernia Lumbago History of COVID-19 Hx of unilateral nephrectomy Hepatitis A Juvenile seizure disorder Surgical History History of nephrectomy, left Family History Father No problems noted. 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 1. Little interest or pleasure in doing things: not at all 2. Feeling down, depressed, or hopeless: not at all 3. Trouble falling or staying asleep, or sleeping too much: not at all 4. Feeling tired or having little energy: not at all 5. Poor appetite or overeating: not at all 6. Feeling bad about yourself - or that you are a failure or have let yourself or your family down: not at all 7. Trouble concentrating on things, such as reading the newspaper or watching television: not at all 8. Moving or speaking so slowly that other people could have noticed. Or the opposite - being so fidgety or restless that you have been moving around a lot more than usual: not at all 9. Thoughts that you would be better off or of hurting yourself in some way: not at all Total score: 0 Depression Screening Interpretation: Negative Depression Screening Done: Yes Source: Developed by Drs. Eber Werner, Dee Jaimes, Elder Payne and colleagues, with an educational emily from [employer]. Thrive Questionnaire Date Thrive assessed: 03/12/25 I am a: Patient What is your living situation today?: I have a steady place to live Within the past 12 months, did the food you bought not last and you didn't have the money to get more?: I choose not to answer this question Within the past 12 months, did you worry whether your food would run out before you got money to buy more?: I choose not to answer this question Do you have trouble paying for medicines?: I choose not to answer this question Do you have trouble getting transportation to medical appointments?: I choose not to answer this question Do you have trouble paying your heating and electricity bill?: I choose not to answer this question Do you have trouble taking care of your child, family member or friend?: I choose not to answer this question Do you have trouble with day-to-day activities such as bathing, preparing meals, shopping, managing finances, etc.?: I choose not to answer this question Are you currently unemployed and looking for a job?: I choose not to answer this question Are you interested in more education?: I choose not to answer this question Please select the resources that you would like help with: None Currently or been in a relationship where the following occur: I choose not to answer THRIVE Score: 0 AUDIT C Alcohol Use Questionnaire (AUDIT-C) 1. How often do you have a drink containing alcohol?: Never Total Score: 0 AFRICA-7 AMB Questionnaire AFRICA-7 Date AFRICA - 7 assessed: 06/17/25 Feeling nervous, anxious, or on edge: 1 = Several days Not being able to stop or control worryin = More than half the days Worrying too much about different things: 1 = Several days Trouble relaxin = Not at all Being so restless that it is hard to sit still: 0 = Not at all Becoming easily annoyed or irritable: 0 = Not at all Feeling afraid as if something awful might happen: 1 = Several days Total AFRICA-7 score (0-4 normal; 5-9 mild; 10-14 moderate; 15-21 severe): 5 Source: Developed by Drs. Eber Werner, Dee Jaimes, Elder Payne and colleagues, with an educational emily from [employer]. AFRICA-7 Assessment Billing AFRICA-7 Assessment Tool: AFRICA-7 Assessment 21949 Review of Systems Const Denies lethargy and Denies poor appetite Eyes Details: Sees Mar[facility]- Ophthalmology Reports requires corrective lenses (Mainly for driving) ENT Reports no additional complaints Card Denies chest pain, Denies irregular heart rhythm, Denies leg edema, Denies lightheadedness and Denies dyspnea Resp Denies cough and Denies dyspnea GI Denies abdominal pain, Denies change in bowel habits, Denies heartburn and Denies nausea Details: Sees OBGYN at [facility] Reports no additional complaints Musc Denies arthralgias and Denies muscle weakness Neuro Reports no additional complaints Endo Reports no additional complaints Tima/Lymph Reports no additional complaints Aller/Immun Reports no additional complaints Physical exam (Primary Care) Tobacco/Smoking Status: Tobacco use Status Tobacco use date assessed 06/17/25 06/17/25 08:03 Patient Tobacco Use Status Never used Tobacco 06/17/25 08:03 e-Cigarette/Vaping Use Never Used 06/17/25 08:03 PHQ-9: PHQ-9 Score PHQ-9: Total score 0 06/17/25 08:06 Depression Screening Interpretation: Negative Thrive Assessment: Date of Thrive Assessment Date Thrive assessed 03/12/25 06/17/25 08:03 Currently or been in a relationship where the following occur: I choose not to answer Telehealth Telehealth Telehealth Platform: [facility] Location of provider rendering services: practice address Location of patient: address on file Patient Identification confirmed using: Name, : Yes Telehealth method: video Patient verbally consented to treatment: Yes Patient verbally consented to billing insurance company: Yes Patient informed of any privacy concerns related to visit: Yes Minutes spent on Phone/Video with Pt.: 15 Coding Level of Care Code Tele Est Pt Level 3 (70026) Diagnoses Generalized anxiety disorder F41.1 Additional Codes AFRICA-7 Assessment Billing - AFRICA-7 Assessment Tool: AFRICA-7 Assessment 67923 ([id number]) Assessment & Plan Assessment & Plan (1) Generalized anxiety disorder: Code(s): F41.1 - Generalized anxiety disorder Category: Medical Plan: Will start back on buspirone 5 mg to take 1 tablet twice a day. Ninety tablets with 1 refill sent, follow-up in September 2025 year . Declines need for seeing therapist Medications: New buspirone 5 mg PO BID 180 tabs 1RF 3 months
--- OUTSIDE RECORDS SUMMARY | 2025-06-17 08:13 | XMS_ITS | Clinical Summary ---
Author Organization [facility] Address [address] [place] [address] Phone Care Team Providers Care Mechanical Intern Name Role Phone Tessie Cerrato MD Primary Care Provider [phone] Allergies No known active allergies Medications No known medications Active Problems No known active problems Surgical History Surgery Date Site/Laterality Comments OTHER SURGICAL HISTORY 11/29/2016 PROCEDURE: [place] DONOR NEPHRECTOMY OPEN LIVING DONOR; COMMENT: pt [...] care for your loved ones. For example, childbirth educator or elderly care for an older adult? [...] Date Recorded What is your living situation? Unrecognized valu e 01/05/2025 Comments No Sex and Gender Information [...] Care Team (Late st Contact Info) Description 02/12/2026 8:00 AM EDT [facility]ointment [facility] [address] [phone] Health Maintenance Due Date Last Done Comments Colorectal Cancer Screening: Colonoscopy 1977 Hepatitis A Vaccines (1 of 2 - Risk 2-dose series) 1996 Hepatitis B Vaccines (1 of 3 - 19+ 3-dose series) 1996 HIV Screening 06/25/2022 Hepatitis C Screening 06/25/2022 Cervical Cancer Screening: Pap Smear 07/06/2024 07/06/2023, 03/04/2020 COVID-19 Vaccine ( season) 2025 07/17/2021, 01/02/2021, 12/12/2020 Influenza Vaccine (#1) 2025 Social Influencers of Health Screening 01/05/2026 01/05/2025 Breast Cancer Screening 02/10/2027 02/11/20 25, 01/21/2024, 01/18/2023, Additional history exists DTaP,Tdap,and Td Vaccines (3 - Td or Tdap) 05/29/2030 05/29/2020, 03/15/2018 RSV Immunization Adult Patients (1 - 1-dose 75+ series) 2052 Depression Screening Completed 01/05/2025 HIB Vaccines Aged [...] year. Mammo Location: [facility], [address] [place] [address], [phone], . -------- FINAL REPORT -------- Dictated By: Diana Mckinney Dictated Date: 02/10/2025 07:45 ET Assigned Physician: Diana Mckinney Reviewed and Electronically Signed By: Diana Mckinney Signed Date: 02/10/2025 09:41 ET Workstation ID: [id number] Transcribed By: Self Edit Transcribed Date: 02/10/2025 [...] year. Mammo Location: [facility], [address] [place] [address], [id number], . -------- FINAL REPORT -------- Dictated By: Diana Mckinney Dictated Date: 02/10/2025 07:45 ET Assigned Physician: Diana Mckinney Reviewed and Electronically Signed By: Diana Mckinney Signed Date: 02/10/2025 09:41 ET Workstation ID: [id number] Transcribed By: Self Edit Transcribed Date: 02/10/2025 08:41 ET us Tessie Cerrato MD IMG BI PROCEDURES Final Res ult * Pap smear (07/06/2023) 07/06/2023 Narrative HISTORICAL TESTING LAB RESULTING AGENCY - 07/20/2023 10:51 AM EST [id number] THINPREP PAP, IMAGED: NEGATIVE FOR SQUAMOUS INTRAEPITHELIAL [...] HX NEGATIVE, LMP 07/01/23, [Z01.419] Ana Yoon CNM LAB CYTOLOGY ORDERABLES Final Result HISTORICAL TESTING LAB RESULTING AGENCY from Last 3 Months or Most Recently Relevant to Health Maintenance Insurance [facility] Care Teams Mechanical Intern Relationship Specialty Start Date End Date Tessie Cerrato MD [address] [place] [address] PCP - General Internal Medicine 12/28/16
== END 2025-06-17 09:02 | disposition home or self-care (01) ==
LOC: HO.HMCC 08:02
PROVIDERS: PCP Internal Medicine; Visit Provider Internal Medicine
DX: F41.1 Generalized anxiety disorder (principal)

== ENCOUNTER → 2025-06-17 08:01 | Outpatient (BNVA) | payer OTHER, SELFPAY | PROVIDERS: PCP Internal Medicine; Visit Provider Internal Medicine | DX: F41.1 Generalized anxiety disorder (principal); Z79.899 Other long term (current) drug therapy | CPT/HCPCS: 96127 ==

== ENCOUNTER 2025-07-17 07:38 | Outpatient (AMB) | payer OTHER, SELFPAY ==
--- OUTSIDE RECORDS SUMMARY | 2025-07-17 07:42 | XMS_ITS | Clinical Summary ---
Author Organization [facility] Address [address] [place] [address] Phone Care Team Providers Care Barbed Wire Machine Operator Name Role Phone Tessie Cerrato MD Primary Care Provider [phone] Allergies No known active allergies Medications No known medications Active Problems No known active problems Surgical History Surgery Date Site/Laterality Comments OTHER SURGICAL HISTORY 11/29/2016 PROCEDURE: [place] DONOR NEPHRECTOMY OPEN LIVING DONOR; COMMENT: pt [...] care for your loved ones. For example, childcare administrator or elderly care for an older adult? [...] AM EDT [facility]ointment [facility] at [address] [phone] Health Maintenance Due Date Last [...] year. Mammo Location: [facility], [address] [place] [address], [phone], . -------- FINAL REPORT -------- Dictated By: Diana Mckinney Dictated Date: 02/10/2025 07:45 ET Assigned Physician: Diana Mckinney Reviewed and Electronically Signed By: Diana Mckinney Signed Date: 02/10/2025 09:41 ET Workstation ID: [id number] Transcribed By: Self Edit Transcribed Date: 02/10/2025 [...] year. Mammo Location: [facility], [address] [place] [address], [id number], . -------- FINAL REPORT -------- Dictated By: Diana Mckinney Dictated Date: 02/10/2025 07:45 ET Assigned Physician: Diana Mckinney Reviewed and Electronically Signed By: Diana Mckinney Signed Date: 02/10/2025 09:41 ET Workstation ID: [id number] Transcribed By: Self Edit Transcribed Date: 02/10/2025 08:41 ET us Tessie Cerrato MD IMG BI PROCEDURES Final Res ult * Pap smear (07/06/2023) 07/06/2023 Narrative HISTORICAL TESTING LAB RESULTING AGENCY - 07/20/2023 10:51 AM EST [id number] THINPREP PAP, IMAGED: NEGATIVE FOR SQUAMOUS INTRAEPITHELIAL [...] Relevant to Health Maintenance Insurance [facility] Care Teams Barbed Wire Machine Operator Relationship Specialty Start Date End Date Tessie Cerrato MD [address] [place] [address] PCP - General Internal Medicine 12/28/16
--- NOTE | 2025-07-17 07:51 | A.OFFVIS_ITS ---
Vital Signs 07/17/25 07:52 Height 5 ft Weight 144 lb BMI 28.1 BP 106/49 L Blood Pressure Location Lt brachial Position Sitting Pulse 82 Intake Visit Reasons: Foreman Screening Intake Note: Patient new consult for 1st pre Colonoscopy screening. Patient cc: abdominal bloating, heartburn and constipation. [employer] Projects Supervisor Required: No Accompanied by: Self / Same As Patient Allergies No Known Drug Allergies Allergy (Verified 03/12/25 11:22) Unknown Medication List - Last Reconciled 07/17/25 by Olivia Lewis CNP buspirone 5 mg PO BID 3 months HPI HPI Foreman Screening: Details: Patient is a 50-year-old female with PMH of [place], acquired solitary kidney s/p donation,. Referred by PCP for pre colonoscopy screening. This will be her first colonoscopy. She did a Cologuard test three years ago which was negative. She has a history of chronic constipation, having bowel movements once or twice a week. She experiences discomfort and bloating but denies pain or blood in her stool. She started eating papaya about a week ago, which has helped. She reports having acid reflux for about a year, which has become more noticeable recently. A recent episode after a vacation lasted for 2-3 days and was worse than usual, with Tums providing little relief. She experiences intermittent regurgitation but denies difficulty swallowing. An upper GI series in December showed mild reflux, a small hiatal hernia, gastritis, and possible erosion. She had an ER visit in September for severe epigastric pain, which has since resolved. Pantoprazole was prescribed during that visit, but she did not take it. Her only current medication is buspirone. . She has no history of anemia, and labs in February showed normal kidney and liver function. She has one kidney, having donated one to her . H. pylori testing was done years ago and was negative. Patient denies: fever/chills, n/v, appetite changes regurgitation,dysphasia, unintentional wt loss or melena/hematochezia. Social hx: -denies ETOH use -denies recreational drug use -non-smoker - family hx as below -denies personal hx of CA -denies significant cardiopulmonary history -tolerated anesthesia in the past without difficulty. [facility] Medical History (Updated 07/17/25 @ 08:31 by Olivia Lewis CNP) Constipation Hiatal hernia Acid reflux Colon cancer screening Generalized anxiety disorder Sliding hiatal hernia Lumbago History of COVID-19 Hx of unilateral nephrectomy Hepatitis A Juvenile seizure disorder Surgical History History of nephrectomy, left Family History Father No problems noted. Mother HTN (hypertension) Osteoporosis Rheumatoid arthritis Asthma Maternal Grandfather Brain cancer Maternal Aunt Liver cancer Daughter Healthy female Social History Household Members: Children Household Members Other:: Daughter Housing: House Alcohol intake: never Patient Tobacco Use Status: Never used Tobacco e-Cigarette/Vaping Use: Never Used Advance Directives Date on File: 01/30/24 Current occupational status: employed Current occupation: [employer] Cognitive needs: No Hearing needs: No Vision needs: Yes Physical Exam Vital Signs: BMI result Body Mass Index 28.1 Const General: healthy appearing, no acute distress and well developed Nutritional Appearance: average body habitus Orientation/consciousness: patient oriented x3 HEENT Head: Yes normal to inspection, Yes normocephalic and Yes atraumatic Face and sinus: Yes normal facial exam Eyes General: appearance normal, both eyes and all related structures Neck Neck: Yes normal visual inspection Resp Effort & Inspection: normal respiratory effort, able to speak in complete sentences, no tracheal deviation and symmetric chest movement Cardio Jugular venous distension: no JVD GI Inspection: Yes normal to inspection and No distended Palpation (GI): Soft to palpation, not firm, nontender and No hepatosplenomegaly present Auscultation: normal bowel sounds Neuro General: patient oriented x3 Gait exam (Neuro): Normal gait present Psych Appearance: grossly normal Mental Status: mental status grossly normal Speech and movement: Normal speech and movement present Affect: normal affect Attitude: cooperative Thought process: Normal thought process present Thought content: Normal thought content present Insight: Good insight present (Psych) Judgement: Good judgement present (Psych) Results Reviewed Results Reviewed: Date of Service: 01/09/25 Procedure(s): FL upper GI w air Accession Number(s): [id number] cc: Tessie Cerrato MD~ EXAMINATION: XR FLUOROSCOPY UPPER GI WITH AIR CLINICAL INFORMATION: Epigastric pain COMPARISON: None available. TECHNIQUE: Routine upper GI air contrast study was performed in upright and lying position. FINDINGS: Allowing oral administration of thick barium and effervescent granules is normal propagation bolus from the oral cavity through the pharynx, esophagus into stomach without obstruction, narrowing or stricture. No retention of barium visualized in the valleculae or piriform sinuses. On placing patient in supine and prone the course, caliber and peristalsis stomach and duodenal bulb is normal. There are small gastric erosive changes in the body of the stomach . No gastric or duodenal ulceration seen. A small sliding hiatal hernia with mild gastroesophageal reflux. Mild increased gastric secretions are noted likely secondary to hyper acidity. FLUOROSCOPY TIME: 2 minute 41 seconds DOSE AREA PRODUCT: 2088 uGy-m2 (microgray-meter squared) FL/FL upper GI w air IMPRESSION: Small sliding hiatal hernia with mild gastroesophageal reflux. Increased gastric secretions suspicious for gastric acidity. Small gastric erosions are noted. Electronically signed by: Jacky Stewart MD 01/09/2025 10:36 AM EDT RP Assessment & Plan Assessment & Plan (1) Colon cancer screening: Code(s): Z12.11 - Encounter for screening for malignant neoplasm of colon Category: Medical Plan: Due index screening colonoscopy. No alarm features (2) Constipation: Code(s): K59.00 - Constipation, unspecified Category: Medical Qualifiers: Constipation type: unspecified constipation type Qualified Code(s): K59.00 - Constipation, unspecified Plan: Chronic, likely secondary to low fiber diet. The patient was encouraged to increase dietary fiber, with a focus on her diet first. - A handout on high-fiber foods was provided. - [id number] fiber supplementation (e.g., Metamucil) was discussed as an alternative if dietary changes are not sufficient. - The use of magnesium citrate or glyconate was mentioned as an effective option for constipation. - An extended prep will be used for the upcoming colonoscopy due to the history of constipation. - The extended prep consists of two laxative tablets at bedtime for five nights before the procedure, in addition to the standard MiraLax split prep. (3) Acid reflux: Code(s): K21.9 - Gastro-esophageal reflux disease without esophagitis Category: Medical Qualifiers: Esophagitis presence: esophagitis presence not specified Qualified Code(s): K21.9 - Gastro-esophageal reflux disease without esophagitis Plan: Chronic, evident on 12/2024 UGI (see above). Small hiatal hernia noted as well. An upper endoscopy (EGD) will be scheduled at the same time as the screening colonoscopy to evaluate her symptoms and prior imaging findings. - An H. pylori breath test will be performed today in the office. - If the H. pylori test is positive, quadruple therapy will be prescribed. - Advised starting low dose PPI given gastric erosion noted on UGI. Potential side effects reviewed. Pt agreeable to start. - The patient was counseled on lifestyle modifications, including avoiding trigger foods (e.g., caffeine, carbonation, fatty foods), avoiding large meals, and not lying down after eating. Plan Follow-up after endoscopy or sooner as needed Time: I spent a total of 30 minutes on the date of encounter which includes: Preparing to see the patient (reviewed previous documentation, test results and medical history) Performing a medically appropriate exam and/or evaluation Ordering medications, tests, and procedures Documenting clinical information in the health record Orders: Orders H Pylori Breath Test Today R14.0 - Abdominal distension (gaseous) Referrals GI Procedure Notification K44.9 - Diaphragmatic hernia without obstruction or gangrene, Z12.11 - Encounter for screening for malignant neoplasm of colon Medications: New omeprazole Take one tablet daily. Best taken on an empty, 30 minutes before eating. 20 mg PO DAILY 30 caps 0RF bisacodyl Take two tablets at bedtime, starting five nights before colonoscopy 10 mg (2 x 5 mg) PO BEDTIME 10 tabs 0RF bisacodyl take four tablets once day of colonoscopy prep 20 mg (4 x 5 mg) PO ONCE 4 tabs 0RF polyethylene glycol 3350 (Miralax) per colonoscopy prep instructions 238 grams PO ONCE 238 grams 0RF Coding Level of Care Code New Pt New Pt Level 3 (62808) Patient Type New Diagnoses Colon cancer screening Z12.11 Constipation, unspecified constipation type K59.00 Constipation type: unspecified constipation type Gastroesophageal reflux disease, unspecified whether esophagitis present K21.9 Esophagitis presence: esophagitis presence not specified
[2025-07-17 07:52] VITALS: BP 106/49; PULSE 82; BMI 28.1
== END 2025-07-17 08:24 | disposition home or self-care (01) ==
LOC: HO.HGI 07:39
PROVIDERS: PCP Internal Medicine; Visit Provider Nurse Practitioner Family
DX: Z01.818 Encounter for other preprocedural examination (principal); Z12.11 Encounter for screening for malignant neoplasm of colon; K59.00 Constipation, unspecified; K21.9 Gastro-esophageal reflux disease without esophagitis
CPT/HCPCS: 99203

== ENCOUNTER 2025-07-17 09:00 | Outpatient (REF) | payer OTHER, SELFPAY | END 2025-07-17 09:01 | disposition home or self-care (01) | LOC: HO.LNP 09:00 | PROVIDERS: PCP Internal Medicine; Visit Provider Nurse Practitioner Family | DX: Z12.11 Encounter for screening for malignant neoplasm of colon (principal); K21.9 Gastro-esophageal reflux disease without esophagitis; K59.00 Constipation, unspecified; R14.0 Abdominal distension (gaseous) | CPT/HCPCS: 83013 ==